=== PATIENT | female | born 1955 | race Caucasian/White ===

== ENCOUNTER 2023-04-16 11:15 | Emergency (ER) | payer MEDICARE, SELFPAY ==
[2023-04-16 11:16] VITALS: BP 135/80; PULSE 84; RESP 18; TEMP 36.7; O2SAT 94; BMI 29.9
--- NOTE | 2023-04-16 11:47 | ED_ITS ---
HPI - Syncope 2 General: Chief Complaint: Syncope Stated Complaint: SYNCOPE Time Seen by Provider: 04/16/23 11:26 Source: patient and family Mode of arrival: EMS Limitations: no limitations History of Present Illness: This patient was transported to our emergency department via EMS. She was apparently in the smoke shop along with her when she felt lightheaded like that she was going to lose consciousness and possibly pass out. Her was standing right next to her and she states that she attempted to step backwards and then continue to go down to the floor and going backwards to the floor on her back. partially broke her fall states she did not strike her head, lose consciousness, suffer seizure, suffer a loss of bowel or bladder control. She denies any concomitant chest pain or focal weakness with this episode. She denied headache etc. She has had several episodes similar to this and has been seen both in outpatient clinic as well as the emergency department at [facility]. They received the majority of their care through [facility]. She takes iron as well as thyroid replacement as well as her inhalers for COPD. She has been recently treated for pneumonia. She also has an MRI scheduled because of a kidney mass discovered on a CT scan recently. She denies any blood in her stools, black tarry stools, recent illness such as nausea vomiting or diarrhea. She continues to have cough but no fever. She smokes tobacco but denies alcohol. She takes meloxicam daily basis for arthritis. As noted she had a couple of or more of similar episodes 1 with defecation and 1 with rising from the couch recently. complaint: almost passed out and collapsed Prodromal symptoms: lightheaded Injuries sustained associated with event: none Associated symptoms: Reports no associated symptoms; Deny abdominal pain, chest pain, fever(s), headache(s) or nausea Review of Systems 2 Const: Denies: fever(s) or chills Eyes: Denies: change in vision ENMT: Denies: throat pain or odynophagia Card: Denies: chest pain, palpitations, irregular heart rhythm or edema Resp: Reports: productive cough; Denies: wheezing or stridor GI: Denies: abdominal pain, nausea, vomiting, hematemesis, hematochezia or melena : Denies: flank pain, difficulty voiding, dysuria or urinary frequency Musc: Denies: neck pain, back pain, extremity pain or extremity swelling Skin/Breast: Denies: rash Neuro: Denies: headache(s), numbness in extremities or weakness in extremities Psych: Denies: anxiety or depression Physical Exam 2 Narrative: EXAM NARRATIVE: She is alert appears comfortable in no acute distress. She makes good eye contact. Speech is goal-directed and fluent. Const: COMMON NORMALS: no acute distress, average body habitus, patient oriented x3 and alert GENERAL APPEARANCE: cooperative HENMT: COMMON NORMALS: normocephalic, atraumatic, Normal nasal mucous membranes and turbinates present, moist oral mucous membranes and oropharynx normal HEAD & SCALP: normocephalic and atraumatic FACE & SINUS: normal facial exam and face symmetric NOSE: Normal nasal mucous membranes and turbinates present Eye: COMMON NORMALS: Equal, round and reactive pupils present, EOMs intact bilaterally and conjunctivae normal CONJUNCTIVA: Yes conjunctivae normal P UPIL: Yes Equal, round and reactive pupils present Neck/C-Spine: COMMON NORMALS: full ROM CERVICAL SPINE: Yes cervical ROM normal, No Cervical spine tenderness, No step off deformity, No Paracervical muscle tenderness, No Paracervical spasm and No Trapezius muscle tenderness O THER: Normal range of motion without any discomfort or pain, midline tenderness, step- off. Lymph: LYMPHATIC: no lymphadenopathy noted Chest: COMMONS NORMALS: normal inspection of the chest and normal palpation of entire chest wall Resp: COMMON NORMALS: normal respiratory effort EFFORT & INSPECTION: Yes able to speak in complete sentences AUSCULTATION: crackles and wheezes Cardio: COMMON NORMALS: regular rate, regular rhythm, No murmurs present (Cardio) and Peripheral pulses 2+ throughout RATE: regular rate RHYTHM: r egular rhythm PERIPHERAL PULSES: Peripheral pulses 2+ throughout GI: COMMON NORMALS: Normal to inspection, nondistended, normoactive bowel sounds present, Soft to palpation, non-tender and No hepatosplenomegaly present PALPATION: Yes Soft to palpation and Yes No hepatosplenomegaly present : COMMON NORMALS: Yes no CVA tenderness BLADDER/KIDNEY EXAM: Yes no CVA tenderness Back/Pelvis: COMMON NORMALS: no CVA tenderness, thoracic and lumbar spine normal to inspection, no thoracic nor lumbar tenderness and straight leg raise negative bilaterally Extremity: COMMON NORMALS: normal to inspection, full ROM, capillary refill normal, no calf tenderness and no pedal edema Neuro: COMMON NORMALS: patient oriented x3, moves all extremities, no focal motor deficits and no sensory deficits noted SENSORIUM/ORIENTATION: Yes alert CRANIAL NERVES: Yes CN normal except as noted Psych: COMMON NORMALS: mental status grossly normal Skin: COMMON NORMALS: no rashes or lesions noted, no wounds, turgor normal and no petechiae GENERAL SKIN EXAM: no rashes or lesions noted and turgor normal Course 2 Reevaluation(s): Reevaluation #1: Patient was noted to have varying pulse oximetry is in the mid to high 80s at times at rest. Additional information was obtained from the patient apparently she is on 3 L of oxygen continuously at home. Her portable canister was inoperable so therefore she did not present to the emergency department wearing her oxygen. This provides mitigation against absolute need for hospitalization at this time. I discussed her past treatment apparently she was given azithromycin as well as Levaquin earlier in the course of her treatment approximately 1 month ago. She has normal vital signs at this time and corrects easily to 100% with 2 L of oxygen via nasal cannula. She is receiving her IV fluids at this time. Will go ahead and give her a loading dose of Rocephin and plan on continuing doxycycline for outpatient therapy. She is comfortable with this plan of care. Time: 13:40 Vital Signs: Vital signs: Vital Signs Temperature 98.1 F 04/16/23 11:16 Pulse Rate 82 04/16/23 13:24 Respiratory Rate 20 H 04/16/23 13:19 Blood Pressure 135/80 04/16/23 11:16 Pulse Oximetry 95 04/16/23 13:19 Oxygen Delivery Me thod Room Air 04/16/23 13:19 MDM - Syncope Medical Decision Making This patient presented to our emergency department with a near/syncopal episode. She has had several of these in the past several weeks according to both patient and spouse. There were not associated with focal weakness, seizure, trauma etc. She has recently been ill with pneumonia and had antibiotics approximately 1 month prior to arrival to this emergency department. She apparently has oxygen requiring COPD and normally wears 2 to 3 L of oxygen via nasal cannula but did not have it with her today as apparently her portable canister supply method is nonfunctional. She does have an oxygen concentrator at home that she uses at that locale. Her most recent history is also that she continues to have purulent sputum and a productive cough does not feel that she is back at her usual baseline with respect to her pulmonary status. She is a long standing smoker and still smokes regularly. She states her oral intake is been less over the past couple weeks because she really does not have much in the way of taste or thirst. She denies any nausea vomiting diarrhea etc. No chest pain etc. No known history of congestive heart failure or coronary disease. Clinical examination revealed her to be alert. She had normal vital signs throughout her emergency department stay. She did require supplemental oxygen to maintain O2 saturation in the high 90s to 100% on 2 L. She received the benefit of evaluation to include chemistries serial EKGs serial troponin, another evaluation to ensure no evidence of ongoing ACS, significant volume depletion, arrhythmia etc. There was no clinical evidence or historical evidence suggest trauma so no imaging was obtained of her axial spine or her head. She was also not on any antiplatelet or anticoagulant medication. Given her radiographic evidence of persistent pneumonia, her clinical picture she was given antibiotics in the emergency department and will be continued on a broad-spectrum antibiotic with improved coverage over her prior antibiotic exposure. She did not have any sustained ischemic changes or arrhythmias on EKG but did have a shortened KS interval which could put put her at potential risk for supraventricular arrhythmia such as atrial fibs atrial flutter. She did not display anemia or other findings that could be contributing to her syncopal episodes she is had no clinical history to suggest same but I think it is warranted that she be referred for ambulatory monitoring to ensure that there is no sustained arrhythmias. I think her recent illness may be contributing factor to her syncope. No evidence at this time of other ongoing emergency medical condition. Pneumonia severity score and her clinical appearance did not mandate inpatient treatment and the patient was very comfortable with going home with outpatient follow-up. Lab Data I reviewed the patient's lab results. 04/16/23 12:08 04/16/23 12:08 Radiology Impressions Chest X-Ray 04/16/23 11:53 IMPRESSION: 1. Left lower lung consolidation consistent with pneumonia. 2. Indistinct central pulmonary interstitial markings bilaterally. This finding may be related to infection or interstitial edema. ADDENDUM: 04/16/23 8093 THIS REPORT CONTAINS FINDINGS THAT MAY BE CRITICAL TO PATIENT CARE. The findings were verbally communicated via telephone conference with ROSEMARY VELASQUEZ at 12:52 PM SECURITY FLEX OFFICER on 04/16/2023. The findings were acknowledged and understood. The referring physician reports that symptoms have been ongoing for approximately 1 month. Given this information, recommendation for radiographic follow-up to resolution was discussed. Follow-up chest radiograph should be performed in approximately 6 weeks. Laboratory Results WBC 12.91 10^3/uL (3.29-11.43) H 04/16/23 12:08 RBC 4.50 10^6/uL (3.85-5.65) 04/16/23 12:08 Hgb 11.20 g/dL (11.27-16.99) L 04/16/23 12:08 Hct 37.3 % (36-47) 04/16/23 12:08 MCV 82.9 fl (85-98) L 04/16/23 12:08 MCH 24.9 pg (27-33) L 04/16/23 12:08 MCHC 30.0 g/dL (30-55) 04/16/23 12:08 RDW 17.2 % (12.1-15.1) H 04/16/23 12:08 Plt Count 299 10^3/cmm (157-399) 04/16/23 12:08 MPV 8.8 fL (7.4-10.4) 04/16/23 12:08 Neut % (Auto) 83.7 % 04/16/23 12:08 Lymph % (Auto) 7.0 % 04/16/23 12:08 [place] % (Auto) 8.1 % 04/16/23 12:08 Eos % (Auto) 0.5 % 04/16/23 12:08 Baso % (Auto) 0.3 % 04/16/23 12:08 Neut # (Auto) 10.80 10^3/uL (1.8-7.7) H 04/16/23 12:08 Lymph # (Auto) 0.9 10^3/uL (0.8-4.8) 04/16/23 12:08 [place] # (Auto) 1.1 10^3/uL (0.2-0.9) H 04/16/23 12:08 Eos # (Auto) 0.1 10^3/uL (0.0-0.8) 04/16/23 12:08 Baso # (Auto) 0.0 10^3/uL (0.0-0.1) 04/16/23 12:08 Nucleated RBC % (auto) 0 % 04/16/23 12:08 Nucleated RBCs # 0.0 /100WBC 04/16/23 12:08 Sodium 127 mmol/L (136-145) L 04/16/23 12:08 Potassium 3.6 mmol/L (3.5-5.1) 04/16/23 12:08 Chloride 91 mmol/L (98-107) L 04/16/23 12:08 Carbon Dioxide 23 mmol/L (22-29) 04/16/23 12:08 Anion Gap 16.6 (5-19) 04/16/23 12:08 BUN 9 mg/dL (8-23) 04/16/23 12:08 Creatinine 0.8 mg/dL (0.5-0.9) 04/16/23 12:08 GFR Calculation 71.3 mL/min (90-130) L 04/16/23 12:08 Glucose 110 mg/dL (65-115) 04/16/23 12:08 Calculated Osmolality 263 mOsm/kg (285-295) L 04/16/23 12:08 Calcium 8.9 mg/dL (8.5-10.5) 04/16/23 12:08 Total Bilirubin 0.8 mg/dL (0.15-1.2) 04/16/23 12:08 AST 32 U/L (0-32) 04/16/23 12:08 ALT 21 U/L (0-33) 04/16/23 12:08 Alkaline Phosphatase 231 U/L (35-105) H 04/16/23 12:08 Troponin T Baseline 10 ng/L (0-10) 04/16/23 12:08 Total Protein 7.0 g/dL (6.6-8.7) 04/16/23 12:08 Albumin 2.0 g/dL (3.5-5.2) L 04/16/23 12:08 Globulin 5.0 g/dL (1.3-4.6) H 04/16/23 12:08 All radiology interpretation(s) finalized by discharge EKG Data EKG 1: I personally reviewed and interpreted this EKG as follows: Interpretation: Contemporaneous review of EKG reveals a ventricular rate of 87 bpm. Normal QRS duration, corrected QT interval. Does have a shortened KS interval of 106 ms. Does not have any evidence of delta waves at this time. Does have an occasional unifocal extra systole. No acute ST-T wave changes noted. Normal axis. No prior tracings available within the system for comparison EKG 2: I personally reviewed and interpreted this EKG as follows: Interpretation: Repeat electrocardiogram reveals a ventricular rate of 79 bpm. Still has a shortened KS interval 113 ms. Normal QRS duration, normal corrected QT interval. Slight leftward axis. No acute ST-T wave changes and no change from prior tracing this visit. Discharge Plan Discharge Patient Disposition: Home Clinical Impression: Left lower lobe pneumonia Qualifiers: Pneumonia type: due to unspecified organism Qualified Code(s): J18.9 - Pneumonia, unspecified organism Syncope Qualifiers: Syncope type: unspecified Qualified Code(s): R55 - Syncope and collapse Condition: Stable Prescriptions: New doxycycline hyclate 100 mg capsule 100 mg PO BID 7 Days Qty: 14 0RF No Action atorvastatin 40 mg tablet 40 mg PO QPM meloxicam 15 mg tablet 15 mg PO DAILY potassium chloride 10 mEq tablet extended release 10 meq PO DAILY Iron (ferrous sulfate) 325 mg (65 mg iron) Tablet 325 mg PO DAILY albuterol sulfate 90 mcg/actuation HFA aerosol inhaler 2 puff INHALATION Q4H PRN (Reason: Shortness Of Breath Or Wheezing) fluoxetine 20 mg capsule 20 mg PO DAILY levothyroxine 112 mcg tablet 112 mcg PO DAILY quetiapine 50 mg tablet 50 mg PO QPM Symbicort 160-4.5 mcg/actuation HFA aerosol inhaler 2 puff INHALATION BID Discharge Orders: Discharge ED (Routine); Ordered 04/16/23 Ordered By: Rosemary Velasquez Discharge Diet: Usual diet Discharge Activity: Increase activity as tolerated and Oxygen as instructed Patient Instructions: Opioid Safety, Pain Management Activity Restrictions/Additional Instructions: As we discussed you will need to continue antibiotics that we have prescribed. You should also continue to use your home oxygen. Also should drink at least 2 quarts of water daily in addition to your other fluids. Do not smoke cigarettes. We have placed an order for a monitor that can be arranged through your bleacher pulp in [place] to determine if you are having a heart rhythm issues that are contributing to your feeling weak. You are welcome to return to this emergency department anytime should you have increasing shortness of breath, feeling weak or passing out chest pains etc. Otherwise follow-up with your regular doctor in 7-10 days. Coding Level of Care Code ED Riverboat Master for Preeti Lynn
--- NOTE | 2023-04-16 11:53 | XRR_ITS ---
PROCEDURE INFORMATION: Exam: XR Chest Exam date and time: 04/16/2023 1:12 PM Age: 67 years old Clinical indication: Cough TECHNIQUE: Imaging protocol: Radiologic exam of the chest. Views: 1 view. COMPARISON: No relevant prior studies available. FINDINGS: Lungs: There is ill-defined consolidation in the lower left lung partially obscuring the left heart border probably involving the lingula and left lower lobe. There is no focal consolidation on the right. Central pulmonary interstitial markings are indistinct bilaterally. Pleural spaces: There is no pleural effusion or pneumothorax. Heart/Mediastinum: There is mild enlargement of the cardiac silhouette. Bones/joints: Bones are unremarkable. XR/XR chest 1V portable [id number] IMPRESSION: 1. Left lower lung consolidation consistent with pneumonia. 2. Indistinct central pulmonary interstitial markings bilaterally. This finding may be related to infection or interstitial edema.
[2023-04-16 12:13] LABS: Basophils % 0.3 %; Eosinophils # 0.1 10^3/uL (0.0-0.8); Eosinophils % 0.5 %; Hematocrit 37.3 % (36-47); Lymphocytes # 0.9 10^3/uL (0.8-4.8); Mean Corpuscular Hemoglobin 24.9 pg (27-33); Mean Corpuscular Volume 82.9 fl (85-98); Mean Platelet Volume 8.8 fL (7.4-10.4); Monocytes # 1.1 10^3/uL (0.2-0.9); Monocytes % 8.1 %; Neutrophils % 83.7 %; Nucleated Red Blood Cells % 0 %; Platelet Count 299 10^3/cmm (157-399); Red Cell Distribution Width 17.2 % (12.1-15.1); White Blood Count 12.91 10^3/uL (3.29-11.43)
--- NOTE | 2023-04-16 12:14 | ECG_ITS ---
[facility] Test Date: 2023-04-16 Pat Name: Li Fofana Department: Room: Gender: Female Specialist Employee Labor Relations: : 1955 Requested By: Goldy Theodore Order Number: [id number] Burt MD: Mariel Cardenas M.D. Measurements Intervals [place] Rate: 87 P: 78 GA: 106 QRS: 12 QRSD: 82 T: 47 QT: 347 QTc: 419 Interpretive Statements SINUS RHYTHM WITH SHORT GA INTERVAL WITH OCCASIONAL VENTRICULAR PREMATURE COMPLEXES No previous ECG available for comparison Electronically Signed On 04-17-2023 21:30:00 PROCESSING SUPERVISOR by Mariel Cardenas M.D. [id number]
[2023-04-16 12:35] LABS: Alanine Aminotransferase 21 U/L (0-33); Alkaline Phosphatase 231 U/L (35-105); Blood Urea Nitrogen 9 mg/dL (8-23); Calcium 8.9 mg/dL (8.5-10.5); Carbon Dioxide 23 mmol/L (22-29); Chloride 91 mmol/L (98-107); Glomerular Filtration Rate 71.3 mL/min (90-130); Glucose 110 mg/dL (65-115); Osmolality Calculated 263 mOsm/kg (285-295); Sodium 127 mmol/L (136-145); Total Bilirubin 0.8 mg/dL (0.15-1.2)
[2023-04-16 12:37] LABS: Anion Gap 16.6 (5-19); Aspartate Amino Transferase 32 U/L (0-32); Potassium 3.6 mmol/L (3.5-5.1)
[2023-04-16 12:40] LABS: Troponin(5th) Baseline 10 ng/L (0-10)
[2023-04-16] MEDS: sodium chloride 0.9% 1,000 ML 999 ML IV (12:57)
[2023-04-16] MEDS: ipratropium-albuterol 3 mL Neb INHALATION (13:18)
[2023-04-16 13:19] VITALS: PULSE 81; RESP 20; O2SAT 95
[2023-04-16 13:24] VITALS: PULSE 82
--- NOTE | 2023-04-16 13:49 | ECG_ITS ---
[facility] Test Date: 2023-04-16 Pat Name: Li Fofana Department: Room: Gender: Female Service Advisor: : 1955 Requested By: Goldy Theodore Order Number: [id number] Burt MD: Mariel Cardenas M.D. Measurements Intervals [place] Rate: 79 P: 74 SC: 113 QRS: 52 QRSD: 97 T: 58 QT: 315 QTc: 362 Interpretive Statements SINUS RHYTHM WITH SHORT SC INTERVAL NONSPECIFIC T-WAVE ABNORMALITY Compared to ECG 04/16/2023 12:14:53 T-wave abnormality now present Ventricular premature complex(es) no longer present Electronically Signed On 04-17-2023 21:35:40 PERSONNEL RESEARCH PSYCHOLOGIST by Mariel Cardenas M.D. [id number]
[2023-04-16] MEDS: cefTRIAXone 2,000 MG in sodium chloride 0.9% (plus) 50 ML 100 MG IV (14:12)
[2023-04-16 15:23] VITALS: BP 110/41; PULSE 76; RESP 16; O2SAT 97
--- NOTE | 2023-04-18 11:27 | DCPLANNER ---
I sent referral to [facility] cardiology on 04/18/23 at 0926am. I spoke with this clinic and was told patient has not been seen since 2019 and will need a new patient visit. I sent over all paperwork this morning to fax number : [phone] phone number of [phone]. clinic to contact patient
== END 2023-04-16 15:26 | disposition home or self-care (01) ==
PROVIDERS: Emergency Provider Emergency Medicine
DX: J18.9 Pneumonia, unspecified organism (principal); R55 Syncope and collapse
CPT/HCPCS: 71045; 80053; 84484; 85025; 93005; 94640; 96374; 99285; J0696; J7030

== ENCOUNTER 2023-08-25 19:07 | Inpatient (IN) | payer MEDICARE, SELFPAY ==
[2023-08-25] VITALS (42 sets, daily range): BP systolic 119–150; BP diastolic 54–72; PULSE 63–113; RESP 6–31; TEMP 36.2–36.7; O2SAT 90–100; BMI 26.1
--- NOTE | 2023-08-25 19:46 | P.HP_ITS ---
Providers/Chief Complaint Admitting Physician: Irvin Zapien MD Chief Complaint: Upper GI Bleed History of Present Illness Li Fofana is a 67 year old female with a past medical history significant for hypertension, hypothyroidism, hyperlipidemia, severe recurrent major depression, fibromyalgia, gout, arthritis, asthma, coronary artery disease, COPD, allergic rhinitis, systolic heart failure, chronic hypoxic respiratory failure, and left- sided renal mass suspicious for RCC who transfers from [facility] for further evaluation of GI bleeding. Patient reports she was in her usual state of health until about a month ago when she became diffusely weak at home. States she continued to fall repeatedly. She presented to the outside hospital yesterday for further evaluation of her generalized weakness. She was found to have microcytic anemia. Hemoglobin on 08/23 was 6.5. She was transfused 1 packed red blood cell and started on IV PPI. Hemoglobin after transfusion on AM of 08/24 was 6.8. She reports she does not know her baseline hemoglobin but has never been told she had a problem from her primary care physician who routinely checks her labs. She endorses associated symptoms of melena with black and tarry stools for the past 2 weeks. Endorses associated occasional right upper quadrant abdominal pains that occur intermittently. Denies alleviating or aggravating factors. She denies prior known history of GI bleeding. She denies prior EGD. She reports a colonoscopy around 2014 which was completely clean without polyps. She does take aspirin for history of coronary artery disease. She states that she underwent a left heart catheter about a month ago as part of her preop evaluation and she reports no significant change from her prior heart cath. She takes a baby aspirin daily. She is also on meloxicam which she has been on for many years for osteoarthritis. She denies taking other [id number] NSAIDs. CT abdomen and pelvis on 08/23 showed very large heterogeneous enhancing left renal mass extending into the left renal vein/tumor thrombus. Neovascularity surrounding the left kidney. No significant lymphadenopathy. The left ureter not visible. Involvement of the left ureter not excluded. Findings consistent with renal cell carcinoma. The right kidney is normal in appearance. No lytic or bony lesions. Probable degenerating uterine leiomyomas. The endometrial st ripe appears thickened's versus cystic structures within the uterus. Consider ultrasound of the pelvis for further evaluation. She has a known history of left renal mass. She is following with Dr Lázaro Lauren at [facility]. She has follow up with him on 09/09/23 to discuss surgical planning. She has reportedly already recieved pulmonary clearance from Dr Hatfield at [place], [place], as well as cardiac clearance from Dr Titus in [place] as well. Review of Systems Narrative: A complete review of systems was obtained and is negative except as stated in HPI. Medications/Allergies Home Medications Medication Instructions Recorded Confirmed Last Taken Type albuterol sulfate 90 mcg/actuation 2 puff inhalation Q4H PRN 04/16/23 08/25/23 Unknown History aerosol inhaler Shortness Of Breath Or Wheezing atorvastatin 40 mg tablet 40 mg PO QPM 04/16/23 08/25/23 08/24/23 History budesonide-formoterol HFA 160 2 puff inhalation BID 04/16/23 08/25/23 08/25/23 History mcg-4.5 mcg/actuation aerosol inhaler (Symbicort) ferrous sulfate 325 mg (65 mg 325 mg PO DAILY 04/16/23 08/25/23 04/16/23 History iron) tablet (Iron (ferrous sulfate)) fluoxetine 20 mg capsule 20 mg PO DAILY 04/16/23 08/25/23 Unknown History levothyroxine 112 mcg tablet 112 mcg PO DAILY 04/16/23 08/25/23 08/25/23 History meloxicam 15 mg tablet 15 mg PO DAILY 04/16/23 08/25/23 04/16/23 History potassium chloride 10 mEq 10 meq PO DAILY 04/16/23 08/25/23 08/25/23 History tablet,extended release quetiapine 50 mg tablet 50 mg PO QPM 04/16/23 08/25/23 08/24/23 History Allergies Allergy/AdvReac Type Severity Reaction Status Date / Time codeine Allergy Unknown Verified 04/16/23 12:06 iodine Allergy ADR-Itching Verified 08/25/23 19:31 PFSH Acute PFSH: Medical History Osteoarthritis Gout Fibromyalgia Allergic rhinitis Psoriasis Pulmonary nodule Chronic hypoxic respiratory failure Systolic heart failure Asthma COPD (chronic obstructive pulmonary disease) Depression Hyperlipidemia Left renal mass Hypothyroidism Hypertension Surgical History History of colonoscopy History of tubal ligation History of cardiac cath History of cholecystectomy Family History Father Multiple myeloma Myocardial infarction Mother Alzheimer's dementia Diabetes mellitus, type 2 Social History Smoking and tobacco/nicotine status: current every day tobacco/nicotine user Alcohol intake: never Substance/Drug Use: never Vitals/I&O/Wt Weight last 48 hrs Weight 73.482 kg Physical Exam Narrative: General: Patient is awake and alert. Head: Normocephalic. Atraumatic. EOM intact. Pale mucous membranes. Neck: No JVD. Cardiovascular: RRR. No gallops. No murmurs. No peripheral edema. Lungs: Clear to auscultation, no use of accessory muscles, no crackles or wheezes. On nasal cannula support. Skin: No jaundice. No rashes. Abdomen: Normal bowel sounds, abdomen soft and nontender. Extremities: No cyanosis or clubbing. Musculoskeletal: No swollen or erythematous joints. Neurological: Moves all 4 extremities. No myoclonus. A&P Assessment and plan (1) Acute GI bleeding: Acute GI bleed with melena BUN at outside hospital not markedly elevated Initially hemoglobin 6.5 status post 1 unit packed red blood cell with posttransfusion of 6.8 this morning Recheck labs now Hemoglobin goal of 7-8 given history of coronary disease Trend hemoglobin Telemetry monitoring Start continuous PPI drip Start Carafate Start gentle IV fluids, she does not know her ejection fraction, however is dry on exam General surgery, Dr Diaz already consulted prior to transfer N.p.o. after midnight for endoscopy tomorrow (2) Microcytic anemia: Suspected secondary to acute blood loss anemia from GI bleed She does not know her baseline hemoglobin Check iron panel, will be completely accurate given she is received 1 packed red blood cell at outside hospital Transfuse as needed (3) Hypertension: Blood pressure currently normal Hold any antihypertensives in the setting of GI bleed Monitor vitals closely (4) Left renal mass: Continue outpatient follow-up (5) Hypothyroidism: Continue home Synthroid after home list is updated (6) Depression: Continue home meds after home list is updated Plan DVT prophylaxis: SCD. CODE STATUS: DNR Attestations Medical Necessity Statement*: 67-year-old female transferred for acute blood loss anemia with suspected GI bleed requiring transfusion with expected hospitalization to cross 2 midnights for additional transfusions, IV fluid resuscitation, general surgery evaluation, endoscopy, and supportive care. Coding Level of Care Code Acute Code for Chg Fwd Diagnoses Acute GI bleeding K92.2 Microcytic anemia D50.9 Hypertension I10 Left renal mass N28.89 Hypothyroidism E03.9 Depression F32.A
[2023-08-25] MEDS: pantoprazole 40 MG in sodium chloride 0.9% (plus) 100 ML 20 MG IV (20:32)
[2023-08-25] MEDS: sucralfate 1 gm Tablet PO (20:33)
[2023-08-25 20:35] LABS: Basophils % 0.1 %; Eosinophils % 0.1 %; Hematocrit 23.6 % (36-47); Lymphocytes # 1.3 10^3/uL (0.8-4.8); Mean Corpuscular HGB Conc 30.5 g/dL (30-55); Mean Corpuscular Hemoglobin 25.5 pg (27-33); Mean Corpuscular Volume 83.7 fl (85-98); Mean Platelet Volume 8.6 fL (7.4-10.4); Monocytes # 1.3 10^3/uL (0.2-0.9); Nucleated Red Blood Cells % 0 %; Platelet Count 402 10^3/cmm (157-399); Red Blood Count 2.82 10^6/uL (3.85-5.65); Red Cell Distribution Width 15.7 % (12.1-15.1); White Blood Count 15.54 10^3/uL (3.29-11.43)
[2023-08-25 20:56] LABS: Iron 41 ug/dL (37-145)
[2023-08-25 20:57] LABS: Alanine Aminotransferase 6 U/L (0-33); Albumin Level 2.1 g/dL (3.5-5.2); Alkaline Phosphatase 138 U/L (35-105); Aspartate Amino Transferase 16 U/L (0-32); Blood Urea Nitrogen 17 mg/dL (8-23); Calcium 8.8 mg/dL (8.5-10.5); Carbon Dioxide 21 mmol/L (22-29); Chloride 104 mmol/L (98-107); Creatinine Clr Calc Pharmacy 50.2063; Globulin 4.6 g/dL (1.3-4.6); Glomerular Filtration Rate 49.4 mL/min (90-130); Glucose 147 mg/dL (65-115); Iron 41 ug/dL (37-145); Magnesium 1.8 mg/dL (1.7-2.3); Osmolality Calculated 284 mOsm/kg (285-295); Percent Saturation 28.6 % (20-50); Phosphorus 2.6 mg/dL (2.5-4.5); Sodium 135 mmol/L (136-145); Total Bilirubin 0.9 mg/dL (0.15-1.2); Total Iron Binding Capacity 143 mcg/dl; Total Protein 6.7 g/dL (6.6-8.7); Unsaturated Iron Binding 102 ug/dL (112-347)
[2023-08-25 20:58] LABS: D Dimer 4.02 ug/mLFEU (0-0.59)
[2023-08-25 21:10] LABS: Ferritin 1708 ng/mL (15-150)
[2023-08-25 22:12] LABS: Add Urine Culture? Yes; Add Urine Microscopic? YES; Amorphous Sediment Urine 1+ /hpf; Bacteria Urine 2+ /hpf; Bilirubin Urine Neg (Negative); Blood Urine 2+ (Negative); Coarse Granular Casts Urine 0-4 /lpf; Glucose Urine UA Norm (Normal); Ketones Urine Negative (Negative); Leukocyte Esterase Urine 1+ (Negative); Mucus Urine 2+ /hpf; Nitrate Urine Positive (Negative); Protein Urine Neg (Negative); Specific Gravity, Urine 1.015 (1.005-1.030); Squamous Epithelial Cell Urine 0-4 /hpf (0-5); Urine Appearance Hazy (CLEAR); Urine Color Dark Yellow (Yellow); Urobilinogen Urine Neg (Negative); pH Urine 5 (5-7)
[2023-08-26] VITALS (55 sets, daily range): BP systolic 120–152; BP diastolic 58–98; PULSE 60–85; RESP 12–27; TEMP 36.4–37.3; O2SAT 84–100; BMI 26.1
[2023-08-26] MEDS: pantoprazole 40 MG in sodium chloride 0.9% (plus) 100 ML 20 MG IV ×3 (01:01→10:45)
--- NOTE | 2023-08-26 04:01 | PC.NURSE ---
0: Patient was stable, alert and oriented when brought in by EMS. All belongings were put at bedside.
[2023-08-26] MEDS: cefTRIAXone 1,000 MG in sodium chloride 0.9% (plus) 50 ML 100 MG IV (04:09)
[2023-08-26 04:32] LABS: Basophils % 0.3 %; Eosinophils % 0.1 %; Hematocrit 26.9 % (36-47); Lymphocytes # 1.6 10^3/uL (0.8-4.8); Lymphocytes % 11.5 %; Mean Corpuscular HGB Conc 31.2 g/dL (30-55); Mean Corpuscular Hemoglobin 25.5 pg (27-33); Mean Corpuscular Volume 81.8 fl (85-98); Mean Platelet Volume 8.3 fL (7.4-10.4); Monocytes # 1.2 10^3/uL (0.2-0.9); Monocytes % 8.4 %; Neutrophils # 11.09 10^3/uL (1.8-7.7); Neutrophils % 78.9 %; Nucleated Red Blood Cells % 0 %; Platelet Count 326 10^3/cmm (157-399); Red Blood Count 3.29 10^6/uL (3.85-5.65); Red Cell Distribution Width 15.9 % (12.1-15.1); White Blood Count 14.06 10^3/uL (3.29-11.43)
[2023-08-26 05:03] LABS: Anion Gap 11.1 (5-19); Blood Urea Nitrogen 18 mg/dL (8-23); Calcium 8.8 mg/dL (8.5-10.5); Carbon Dioxide 21 mmol/L (22-29); Chloride 103 mmol/L (98-107); Creatinine Clr Calc Pharmacy 50.2063; Glomerular Filtration Rate 49.4 mL/min (90-130); Glucose 121 mg/dL (65-115); Osmolality Calculated 275 mOsm/kg (285-295); Potassium 4.1 mmol/L (3.5-5.1); Sodium 131 mmol/L (136-145)
[2023-08-26] MEDS: budesonide 0.5 mg/2 mL Neb INHALATION ×2 (08:32→19:57)
[2023-08-26] MEDS: sodium chloride 0.9% 1,000 ML 70 ML IV (08:59)
[2023-08-26] MEDS: pneumococcal (23 valent) SDV 0.5 mL IM (10:04)
--- NOTE | 2023-08-26 10:58 | P.PN_ITS ---
Subjective 2 Subjective: No acute overnight events noted. Seen at bedside she is comfortable lying in bed no new complaints noted. Counseled about the plan of care. Medications: Reviewed: Yes Vitals/I&O/Wt Last Vital Signs Temp 97.8 F 08/26/23 04:00 Pulse 76 08/26/23 09:45 Resp 25 H 08/26/23 09:45 BP 127/83 08/26/23 09:45 Pulse Ox 87 L 08/26/23 09:45 O2 Del Method Nasal Cannula 08/26/23 08:32 O2 Flow Rate 4 08/26/23 08:32 08/25/23 08/26/23 08/26/23 22:59 06:59 14:59 Intake Total 0 / 0 439.667 / 439.667 144 / 144 Output Total 200 / 200 Balance -200 / -200 439.667 / 239.667 144 / 144 Weight last 48 hrs Weight 73.482 kg Weight 73.482 kg Weight 73.482 kg Physical Exam 2 Narrative: General: Patient is awake and alert. Cardiovascular: RRR. No gallops. No murmurs. No peripheral edema. Lungs: Clear to auscultation, no use of accessory muscles, no crackles or wheezes. On nasal cannula support at 3 L . Abdomen: Normal bowel sounds, abdomen soft and nontender. Extremities: No cyanosis or clubbing. Neurological: Moves all 4 extremities. Data 08/26/23 13:42 08/26/23 04:08 A&P Assessment and plan (1) Acute GI bleeding: (2) Microcytic anemia: (3) Depression: (4) Left renal mass: (5) Hypothyroidism: Plan Li Fofana is a 67 year old female with a past medical history significant for hypertension, hypothyroidism, hyperlipidemia, severe recurrent major depression, fibromyalgia, gout, arthritis, asthma, coronary artery disease, COPD, allergic rhinitis, systolic heart failure, chronic hypoxic respiratory failure, and left- sided renal mass suspicious for RCC who transfers from [facility] for further evaluation of GI bleeding. 1. GI bleed she had hemoglobin of 6.5 and 6.8 post 1 unit PRBC. She also reports history of black tarry stools for 2 weeks. Hemoglobin stable this morning at 8.4 but Plan for upper GI endoscopy this afternoon, Dr. Diaz aware. Will monitor hemoglobin with repeat CBC at 11 AM. Continue PPI drip and p.o. Carafate. On IV fluids normal saline at 70 cc/h 2. UTI Continue with IV fluids and ceftriaxone 1 g daily Follow-up urine cultures N.p.o. for now for upper GI endoscopy. DVT prophylaxis with SCD GI prophylaxis, already on PPI drip She is DNR. Attestations 2 Medical Necessity Statement*: She needs continued hospitalization less than 2 midnights for monitoring for GI bleed and upper GI endoscopy. Time Spent in Patient Care: 20 minutes Coding Level of Care Code Acute Code for Chg Fwd Diagnoses Acute GI bleeding K92.2 Microcytic anemia D50.9 Depression F32.A Left renal mass N28.89 Hypothyroidism E03.9 Time Spent (min) 20
--- NOTE | 2023-08-26 13:19 | P.ANESASSM_ITS ---
Pre-Anesthetic Assessment Height/Weight: Height 1.68 m Weight 73.482 kg Temp Pulse Resp BP Pulse Ox O2 Del Method O2 Flow Rate 97.8 F 77 20 H 141/64 100 Nasal Cannula 4 08/26/23 04:00 08/26/23 12:59 08/26/23 12:59 08/26/23 12:59 08/26/23 12:59 08/26/23 08:32 08/26/23 08:32 Operation Date: 08/26/23 14:00 Proposed Procedures p EGD(Not Applicable) - Atilio Diaz DO Familial anesthetic complications: None Was Beta Christos taken within 24 hours: N/A Was Clonidine taken within 24 hours: N/A Last intake: > 8hrs Social Tobacco and No alcohol Exam alert, oriented x 3, clear to auscultation bilaterally and regular rate & rhythm Pulmonary Asthma and Chronic Obstructive Pulmonary Disease (4 L NC continuously) CV/HEM Hypertension renal celll carcinoma Metabolic Hyperlipidemia and Thyroid Disease Anesthetic Plan ASA status: 4 Anesthesia: MAC Risk of > 500 ml blood loss (7ml/kg in children): No Medications/Allergies Home Medications Medication Instructions Recorded Confirmed Last Taken Type albuterol sulfate 90 mcg/actuation 2 puff inhalation Q4H PRN 04/16/23 08/25/23 Unknown History aerosol inhaler Shortness Of Breath Or Wheezing atorvastatin 40 mg tablet 40 mg PO QPM 04/16/23 08/25/23 08/24/23 History budesonide-formoterol HFA 160 2 puff inhalation BID 04/16/23 08/25/23 08/25/23 History mcg-4.5 mcg/actuation aerosol inhaler (Symbicort) ferrous sulfate 325 mg (65 mg 325 mg PO DAILY 04/16/23 08/25/23 04/16/23 History iron) tablet (Iron (ferrous sulfate)) fluoxetine 20 mg capsule 20 mg PO DAILY 04/16/23 08/25/23 Unknown History levothyroxine 112 mcg tablet 112 mcg PO DAILY 04/16/23 08/25/23 08/25/23 History meloxicam 15 mg tablet 15 mg PO DAILY 04/16/23 08/25/23 04/16/23 History potassium chloride 10 mEq 10 meq PO DAILY 04/16/23 08/25/23 08/25/23 History tablet,extended release quetiapine 50 mg tablet 50 mg PO QPM 04/16/23 08/25/23 08/24/23 History Allergies Allergy/AdvReac Type Severity Reaction Status Date / Time codeine Allergy Unknown Verified 04/16/23 12:06 iodine Allergy ADR-Itching Verified 08/25/23 19:31 Current Medications Generic Name Dose Route Start Last Admin Trade Name Freq PRN Reason Stop Dose Admin Budesonide 0.5 mg 08/26/23 08:00 08/26/23 08:32 Budesonide 0.5 Mg/2 Ml Neb INHALATION 0.5 mg BID.RESPIRATORY LISA Administration Fluoxetine HCl 20 mg 08/26/23 09:00 08/26/23 08:44 Fluoxetine 20 Mg Capsule PO Not Given DAILY LISA Pantoprazole Sodium 40 mg/ 100 mls @ 20 mls/hr 08/25/23 20:15 08/26/23 10:45 Sodium Chloride IV 8 mg/hr .Q5H LISA 20 mls/hr Administration 8 MG/HR Ceftriaxone Sodium 1,000 mg/ 50 mls @ 100 mls/hr 08/26/23 04:00 08/26/23 07:24 Sodium Chloride IV Infused Q24H LISA Infusion Protocol Sodium Chloride 1,000 mls @ 70 mls/hr 08/26/23 09:00 08/26/23 08:59 Sodium Chloride 0.9% IV 70 mls/hr .[id number] LISA Administration Levothyroxine Sodium 112 mcg 08/26/23 09:00 08/26/23 08:44 Levothyroxine 112 Mcg Tablet PO Not Given DAILY LISA Sucralfate 1 gm 08/25/23 21:00 08/26/23 10:23 Sucralfate 1 Gm Tablet PO Not Given AC&BEDTIME LISA PFSH Anesthesia Medical History Osteoarthritis Gout Fibromyalgia Allergic rhinitis Psoriasis Pulmonary nodule Chronic hypoxic respiratory failure Systolic heart failure Asthma COPD (chronic obstructive pulmonary disease) Depression Hyperlipidemia Left renal mass Hypothyroidism Hypertension Surgical History History of colonoscopy History of tubal ligation History of cardiac cath History of cholecystectomy Family History Father Multiple myeloma Myocardial infarction Mother Alzheimer's dementia Diabetes mellitus, type 2 Social History Smoking and tobacco/nicotine status: current every day tobacco/nicotine user Alcohol intake: never Substance/Drug Use: never Data Anesthesia 08/26/23 04:08 08/26/23 04:08 Short CBC 08/25/23 08/26/23 Range/Units 20:12 04:08 WBC 15.54 H 14.06 H (3.29-11.43) 10^3/uL Hgb 7.20 L 8.40 L (11.27-16.99) g/dL Hct 23.6 L 26.9 L (36-47) % MCV 83.7 L 81.8 L (85-98) fl Plt Count 402 H 326 (157-399) 10^3/cmm Neut % (Auto) 83.0 78.9 % Neut # (Auto) 12.90 H 11.09 H (1.8-7.7) 10^3/uL BMP 08/25/23 08/26/23 20:12 04:08 Sodium 135 L 131 L Potassium 4.0 4.1 Chloride 104 103 Carbon Dioxide 21 L 21 L BUN 17 18 Creatinine 1.1 H 1.1 H Glucose 147 H 121 H Calcium 8.8 8.8 Liver Function 08/25/23 Range/Units 20:12 Total Bilirubin 0.9 (0.15-1.2) mg/dL AST 16 (0-32) U/L ALT 6 (0-33) U/L Alkaline Phosphatase 138 H (35-105) U/L Albumin 2.1 L (3.5-5.2) g/dL Urine 08/25/23 Range/Units 21:39 Urine Color Dark yellow (Yellow) Urine Appearance Hazy A (CLEAR) Urine pH 5 (5-7) Ur Specific [place] 1.015 (1.005-1.030) Urine Protein Neg (Negative) Urine Glucose (UA) Norm (Normal) Urine Ketones Negative (Negative) Urine Nitrate Positive H (Negative) Urine Bilirubin Neg (Negative) Ur Leukocyte Esterase 1+ H (Negative) Urine RBC 10-15 H (0-2) /hpf Urine WBC 5-10 H (0-5) /hpf Blood Bank 08/25/23 20:12 Blood Type O Positive Rho(D) Type Rh positive Antibody Screen Negative Coags 08/25/23 20:12 PT 16.60 H INR 1.30 H D-Dimer 4.02 H Cardiac Studies: 2 No Data to Display
[2023-08-26 14:18] LABS: Basophils % 0.3 %; Eosinophils % 0.2 %; Hematocrit 26.6 % (36-47); Lymphocytes # 1.4 10^3/uL (0.8-4.8); Mean Corpuscular HGB Conc 31.2 g/dL (30-55); Mean Corpuscular Hemoglobin 25.7 pg (27-33); Mean Corpuscular Volume 82.4 fl (85-98); Mean Platelet Volume 8.6 fL (7.4-10.4); Monocytes % 7.6 %; Neutrophils # 10.08 10^3/uL (1.8-7.7); Neutrophils % 80.2 %; Nucleated Red Blood Cells % 0 %; Platelet Count 381 10^3/cmm (157-399); Red Blood Count 3.23 10^6/uL (3.85-5.65); Red Cell Distribution Width 16.5 % (12.1-15.1); White Blood Count 12.56 10^3/uL (3.29-11.43)
--- NOTE | 2023-08-26 14:28 | P.CONIM_ITS ---
Providers/Reason For Consult 2 Consulting Physician/Specialty*: Dr. Atilio Diaz, DO/General surgery Reason for Consult*: GI bleed Attending Physician: Chelo Zaldivar MD History of Present Illness History of Present Illness Li Fofana is a 67 year old female who was transferred from [facility] due to a GI bleed. She reports that she has been having black stools for the last few weeks but that her bowel movement last night was not black at all. She denies any hematochezia. She denies any significant abdominal pain, nausea, emesis and/or diarrhea. Imaging shows a left renal mass. She has required blood transfusions and hospitalist consulted general surgery for possible EGD. She denies any fever or chills Review of Systems 2 General: Reports: 10 or more systems reviewed and unremarkable except in HPI and below Medications/Allergies Home Medications Medication Instructions Recorded Confirmed Last Taken Type albuterol sulfate 90 mcg/actuation 2 puff inhalation Q4H PRN 04/16/23 08/25/23 Unknown History aerosol inhaler Shortness Of Breath Or Wheezing atorvastatin 40 mg tablet 40 mg PO QPM 04/16/23 08/25/23 08/24/23 History budesonide-formoterol HFA 160 2 puff inhalation BID 04/16/23 08/25/23 08/25/23 History mcg-4.5 mcg/actuation aerosol inhaler (Symbicort) ferrous sulfate 325 mg (65 mg 325 mg PO DAILY 04/16/23 08/25/23 04/16/23 History iron) tablet (Iron (ferrous sulfate)) fluoxetine 20 mg capsule 20 mg PO DAILY 04/16/23 08/25/23 Unknown History levothyroxine 112 mcg tablet 112 mcg PO DAILY 04/16/23 08/25/23 08/25/23 History meloxicam 15 mg tablet 15 mg PO DAILY 04/16/23 08/25/23 04/16/23 History potassium chloride 10 mEq 10 meq PO DAILY 04/16/23 08/25/23 08/25/23 History tablet,extended release quetiapine 50 mg tablet 50 mg PO QPM 04/16/23 08/25/23 08/24/23 History Allergies Allergy/AdvReac Type Severity Reaction Status Date / Time codeine Allergy Unknown Verified 04/16/23 12:06 iodine Allergy ADR-Itching Verified 08/25/23 19:31 Current Medications Generic Name Dose Route Start Last Admin Trade Name Lisa PRN Reason Stop Dose Admin Budesonide 0.5 mg 08/26/23 08:00 08/26/23 08:32 Budesonide 0.5 Mg/2 Ml Neb INHALATION 0.5 mg BID.RESPIRATORY LISA Administration Fluoxetine HCl 20 mg 08/26/23 09:00 08/26/23 08:44 Fluoxetine 20 Mg Capsule PO Not Given DAILY LISA Pantoprazole Sodium 40 mg/ 100 mls @ 20 mls/hr 08/25/23 20:15 08/26/23 10:45 Sodium Chloride IV 8 mg/hr .Q5H LISA 20 mls/hr Administration 8 MG/HR Ceftriaxone Sodium 1,000 mg/ 50 mls @ 100 mls/hr 08/26/23 04:00 08/26/23 07:24 Sodium Chloride IV Infused Q24H LISA Infusion Protocol Sodium Chloride 1,000 mls @ 70 mls/hr 08/26/23 09:00 08/26/23 08:59 Sodium Chloride 0.9% IV 70 mls/hr .[id number] LISA Administration Levothyroxine Sodium 112 mcg 08/26/23 09:00 08/26/23 08:44 Levothyroxine 112 Mcg Tablet PO Not Given DAILY LISA Sucralfate 1 gm 08/25/23 21:00 08/26/23 10:23 Sucralfate 1 Gm Tablet PO Not Given AC&BEDTIME LISA PFSH Acute 2 PFSH: Medical History Osteoarthritis Gout Fibromyalgia Allergic rhinitis Psoriasis Pulmonary nodule Chronic hypoxic respiratory failure Systolic heart failure Asthma COPD (chronic obstructive pulmonary disease) Depression Hyperlipidemia Left renal mass Hypothyroidism Hypertension Surgical History History of colonoscopy History of tubal ligation History of cardiac cath History of cholecystectomy Family History Father Multiple myeloma Myocardial infarction Mother Alzheimer's dementia Diabetes mellitus, type 2 Social History Smoking and tobacco/nicotine status: current every day tobacco/nicotine user Alcohol intake: never Substance/Drug Use: never Vitals/I&O/Wt Last Vital Signs Temp 97.8 F 08/26/23 04:00 Pulse 77 08/26/23 12:59 Resp 20 H 08/26/23 12:59 BP 141/64 08/26/23 12:59 Pulse Ox 100 08/26/23 12:59 O2 Del Method Nasal Cannula 08/26/23 08:32 O2 Flow Rate 4 08/26/23 08:32 08/25/23 08/26/23 08/26/23 22:59 06:59 14:59 Intake Total 0 / 0 439.667 / 439.667 144 / 144 Output Total 200 / 200 200 / 200 Balance -200 / -200 439.667 / 239.667 -56 / -56 Weight last 48 hrs Weight 162 lb Weight 162 lb Weight 162 lb Physical Exam 2 Narrative: General : Patient is well developed , no acute distress, oriented x3 Head : Normal cephalic, a-traumatic. Ears : Pinnae and external canal are normal. Hearing is normal. Eyes : PERRLA, Sclera and injection are normal. No conjunctival discharge. Nose : Mucous membranes are without erythema. Throat : buccal mucosa is normal, gums are without significant recession or hypertrophy. Lungs : Equal chest rise bilaterally, no use of accessory muscles, trachea is midline. Cor : Rate and rhythm are normal. Abdomen : Soft, ND, NT, no g/r/m Extremities : No edema, no cyanosis or clubbing, dorsalis pedis pulses are present bilaterally, non-tender to palpation of calves. Upper extremities are normal bilaterally. Back : non-tender to palpation, no CVA tenderness. Neuro : CN II - XII intact, Upper and lower extremities have equal and full strength Data 08/26/23 13:42 08/26/23 04:08 A&P Assessment and plan (1) Melena: (2) Microcytic anemia: Plan Continue Protonix IV twice daily EGD The risks and benefits of the procedure, including bleeding, infection, intestinal perforation requiring surgery, missed lesion were explained to the patient. The patient is understanding of the risks and wishes to proceed. Coding Level of Care Code 04808 Diagnoses Melena K92.1 Microcytic anemia D50.9
--- NOTE | 2023-08-26 14:55 | ANE.PACU2 ---
Inpatient post-anesthesia follow up: Airway intact: Yes Vital signs: Temperature 97.8 F Pulse Rate 77 Respiratory Rate 20 Blood Pressure 141/64 Pulse Oximetry 100 Oxygen Delivery Me thod Nasal Cannula Oxygen Flow Rate 4 Fraction of Inspir ed Oxygen Hydration adequate: Yes Nausea and vomiting: No Pain level: 1 Mental status: Baseline
--- NOTE | 2023-08-26 16:35 | PC.NURSE ---
Physician Orders: Discontinue protonix gtt and replace with protonix IVP 40 BID
[2023-08-26] MEDS: quetiapine 25 mg Tablet 50 MG PO (17:34)
[2023-08-26] MEDS: sucralfate 1 gm Tablet PO ×2 (17:34→20:24)
[2023-08-26] MEDS: atorvastatin 40 mg Tablet PO (17:34)
[2023-08-26] MEDS: pantoprazole 40 mg SDV IVP (17:34)
[2023-08-26] MEDS: albuterol 2.5 mg/3 mL Neb INHALATION (19:57)
[2023-08-27] VITALS (51 sets, daily range): BP systolic 98–142; BP diastolic 45–83; PULSE 66–91; RESP 4–29; TEMP 36.6–37.6; O2SAT 90–100; BMI 26.1
[2023-08-27] MEDS: cefTRIAXone 1,000 MG in sodium chloride 0.9% (plus) 50 ML 100 MG IV (03:40)
[2023-08-27] MEDS: sodium chloride 0.9% 1,000 ML 70 ML IV (03:40)
[2023-08-27 04:29] LABS: Basophils # 0.1 10^3/uL (0.0-0.1); Basophils % 1.3 %; Eosinophils # 0.1 10^3/uL (0.0-0.8); Eosinophils % 1.1 %; Hematocrit 25.2 % (36-47); Lymphocytes # 1.4 10^3/uL (0.8-4.8); Lymphocytes % 16.5 %; Mean Corpuscular Hemoglobin 25.2 pg (27-33); Mean Corpuscular Volume 81.6 fl (85-98); Mean Platelet Volume 8.3 fL (7.4-10.4); Monocytes # 0.9 10^3/uL (0.2-0.9); Monocytes % 10.9 %; Neutrophils # 5.51 10^3/uL (1.8-7.7); Neutrophils % 67.4 %; Nucleated Red Blood Cells # 0.1 /100WBC; Nucleated Red Blood Cells % 0.6 %; Platelet Count 347 10^3/cmm (157-399); Red Blood Count 3.09 10^6/uL (3.85-5.65); Red Cell Distribution Width 16.8 % (12.1-15.1); White Blood Count 8.18 10^3/uL (3.29-11.43)
[2023-08-27] MEDS: sucralfate 1 gm Tablet PO ×4 (06:12→21:18)
[2023-08-27] MEDS: levothyroxine 112 mcg Tablet PO (08:26)
[2023-08-27] MEDS: pantoprazole 40 mg SDV IVP ×2 (08:26→17:07)
[2023-08-27] MEDS: fluoxetine 20 mg Capsule PO (08:26)
[2023-08-27] MEDS: budesonide 0.5 mg/2 mL Neb INHALATION ×2 (08:52→20:01)
[2023-08-27] MEDS: albuterol 2.5 mg/3 mL Neb INHALATION ×2 (08:52→20:01)
[2023-08-27 14:48] LABS: Basophils # 0.1 10^3/uL (0.0-0.1); Basophils % 0.6 %; Eosinophils # 0.1 10^3/uL (0.0-0.8); Eosinophils % 0.6 %; Hematocrit 25.5 % (36-47); Lymphocytes # 1.4 10^3/uL (0.8-4.8); Lymphocytes % 13.8 %; Mean Corpuscular HGB Conc 30.6 g/dL (30-55); Mean Corpuscular Hemoglobin 25.6 pg (27-33); Mean Corpuscular Volume 83.6 fl (85-98); Mean Platelet Volume 8.4 fL (7.4-10.4); Monocytes % 9.4 %; Neutrophils # 7.53 10^3/uL (1.8-7.7); Neutrophils % 74.8 %; Nucleated Red Blood Cells % 0 %; Platelet Count 334 10^3/cmm (157-399); Red Blood Count 3.05 10^6/uL (3.85-5.65); Red Cell Distribution Width 16.7 % (12.1-15.1); White Blood Count 10.07 10^3/uL (3.29-11.43)
--- NOTE | 2023-08-27 16:25 | P.PN_ITS ---
Subjective 2 Subjective: Patient seen and examined. She reports that she has not had a bowel movement for the last 2 days and that her last 1 was the first 1 that was not melanotic. Denies any abdominal pain. Tolerating diet Vitals/I&O/Wt Last Vital Signs Temp 98 F 08/27/23 12:00 Pulse 66 08/27/23 15:00 Resp 17 08/27/23 12:00 BP 122/45 08/27/23 12:00 Pulse Ox 90 08/27/23 12:00 O2 Del Method Nasal Cannula 08/27/23 08:53 O2 Flow Rate 4 08/27/23 08:53 08/27/23 08/27/23 08/27/23 06:59 14:59 22:59 Intake Total 1050 / 1294 700 / 700 Output Total 500 / 700 950 / 950 Balance 550 / 594 -250 / -250 Weight last 48 hrs Weight 162 lb Weight 162 lb Weight 162 lb Weight 162 lb Weight 162 lb Physical Exam 2 Narrative: General: No acute distress, awake alert and oriented x 3 Abdomen: Soft, nontender, nondistended Data 08/27/23 14:31 08/26/23 04:08 Micro: Microbiology 08/25/23 21:39 Urine Culture - Preliminary Urine,Clean Catch Gram Negative Rods A&P Assessment and plan (1) Melena: (2) Microcytic anemia: Plan EGD within normal limits If she has further melena, she will require a capsule endoscopy. Follow-up with my office if this happens Otherwise surgically stable for discharge Medical management per hospitalist Attestations 2 Medical Necessity Statement*: Per primary Coding Level of Care Code 72381 Diagnoses Melena K92.1 Microcytic anemia D50.9
--- NOTE | 2023-08-27 16:59 | PM.PN ---
Subjective Subjective: No acute overnight events noted. She does not have any new complaints Medications: Reviewed: Yes Vitals/I&O/Wt Last Vital Signs Temp 98 F 08/27/23 12:00 Pulse 66 08/27/23 15:00 Resp 17 08/27/23 12:00 BP 122/45 08/27/23 12:00 Pulse Ox 90 08/27/23 12:00 O2 Del Method Nasal Cannula 08/27/23 08:53 O2 Flow Rate 4 08/27/23 08:53 08/27/23 08/27/23 08/27/23 06:59 14:59 22:59 Intake Total 1050 / 1294 700 / 700 Output Total 500 / 700 950 / 950 Balance 550 / 594 -250 / -250 Weight last 48 hrs Weight 73.482 kg Weight 73.482 kg Weight 73.482 kg Weight 73.482 kg Weight 73.482 kg Physical Exam Narrative: General: Patient is awake and alert. Cardiovascular: RRR. No gallops. No murmurs. No peripheral edema. Lungs: Clear to auscultation, no use of accessory muscles, no crackles or wheezes. On nasal cannula support at 3 L . Abdomen: Normal bowel sounds, abdomen soft and nontender. Extremities: No cyanosis or clubbing. Neurological: Moves all 4 extremities. Data 08/27/23 14:31 08/26/23 04:08 Micro: Microbiology 08/25/23 21:39 Urine Culture - Preliminary Urine,Clean Catch Gram Negative Rods A&P Assessment and plan (1) Acute GI bleeding: (2) Microcytic anemia: (3) Depression: (4) Left renal mass: (5) Hypothyroidism: Plan Li Fofana is a 67 year old female with a past medical history significant for hypertension, hypothyroidism, hyperlipidemia, severe recurrent major depression, fibromyalgia, gout, arthritis, asthma, coronary artery disease, COPD, allergic rhinitis, systolic heart failure, chronic hypoxic respiratory failure, and left-sided renal mass suspicious for RCC who transfers from [facility] for further evaluation of GI bleeding. 1. GI bleed stable, EGD showed no active source of bleeding. hemoglobin trending down. monitor CBC in am and probable discharge in am. 2. UTI Continue with IV fluids and ceftriaxone 1 g daily prelim culture shows gram negative rods, Follow-up final urine cultures regular diet DVT prophylaxis with SCD GI prophylaxis, already on PPI drip She is DNR. Attestations Medical Necessity Statement*: She needs continued hospitalization not crossing more than 2 midnights for monitoring of anemia. Hemoglobin trending down but EGD showed no active source of bleeding. Time Spent in Patient Care: 15 minutes Coding Level of Care Code Acute Code for Chg Fwd Diagnoses Acute GI bleeding K92.2 Microcytic anemia D50.9 Depression F32.A Left renal mass N28.89 Hypothyroidism E03.9 Time Spent (min) 15
[2023-08-27] MEDS: quetiapine 25 mg Tablet 50 MG PO (17:07)
[2023-08-27] MEDS: atorvastatin 40 mg Tablet PO (17:07)
[2023-08-28] VITALS (67 sets, daily range): BP systolic 76–150; BP diastolic 45–93; PULSE 67–172; RESP 9–42; TEMP 36.4–36.7; O2SAT 95–100; BMI 27.1
[2023-08-28] MEDS: cefTRIAXone 1,000 MG in sodium chloride 0.9% (plus) 50 ML 100 MG IV (03:26)
[2023-08-28 03:59] LABS: Basophils # 0.1 10^3/uL (0.0-0.1); Basophils % 0.7 %; Eosinophils # 0.1 10^3/uL (0.0-0.8); Eosinophils % 1.2 %; Hematocrit 23.6 % (36-47); Lymphocytes # 1.5 10^3/uL (0.8-4.8); Lymphocytes % 16.2 %; Mean Corpuscular HGB Conc 30.1 g/dL (30-55); Mean Corpuscular Hemoglobin 25.5 pg (27-33); Mean Corpuscular Volume 84.9 fl (85-98); Monocytes # 0.7 10^3/uL (0.2-0.9); Monocytes % 7.8 %; Neutrophils # 6.91 10^3/uL (1.8-7.7); Neutrophils % 73.3 %; Nucleated Red Blood Cells % 0 %; Platelet Count 360 10^3/cmm (157-399); Red Blood Count 2.78 10^6/uL (3.85-5.65); Red Cell Distribution Width 16.6 % (12.1-15.1); White Blood Count 9.44 10^3/uL (3.29-11.43)
[2023-08-28 04:16] LABS: Alanine Aminotransferase 8 U/L (0-33); Albumin Level 1.7 g/dL (3.5-5.2); Alkaline Phosphatase 133 U/L (35-105); Anion Gap 10.2 (5-19); Aspartate Amino Transferase 27 U/L (0-32); Blood Urea Nitrogen 10 mg/dL (8-23); Calcium 8.5 mg/dL (8.5-10.5); Carbon Dioxide 22 mmol/L (22-29); Chloride 105 mmol/L (98-107); Creatinine Clr Calc Pharmacy 69.0336; Globulin 4.3 g/dL (1.3-4.6); Glomerular Filtration Rate 71.3 mL/min (90-130); Glucose 103 mg/dL (65-115); Osmolality Calculated 277 mOsm/kg (285-295); Potassium 3.2 mmol/L (3.5-5.1); Sodium 134 mmol/L (136-145); Total Bilirubin 0.4 mg/dL (0.15-1.2)
[2023-08-28] MEDS: sucralfate 1 gm Tablet PO ×4 (06:03→20:01)
--- NOTE | 2023-08-28 07:46 | PC.NURSE ---
awake up to bedside voided large amts unable to have bm at this time am breakfast served ..
[2023-08-28] MEDS: budesonide 0.5 mg/2 mL Neb INHALATION ×2 (08:07→19:44)
[2023-08-28] MEDS: albuterol 2.5 mg/3 mL Neb INHALATION (08:07)
[2023-08-28] MEDS: pantoprazole 40 mg SDV IVP ×2 (08:34→16:30)
[2023-08-28] MEDS: fluoxetine 20 mg Capsule PO (08:34)
[2023-08-28] MEDS: levothyroxine 112 mcg Tablet PO (08:34)
[2023-08-28] MEDS: sennosides-docusate Tablet 2 TAB PO (09:08)
--- NOTE | 2023-08-28 10:52 | P.PN_ITS ---
Subjective 2 Subjective: No acute overnight events noted. She was seen at bedside this morning, denies any complaint of dizziness shortness of breath weakness or chest pain. She reports she did not had a bowel movement since last 3 days, and denies any active bleeding Medications: Reviewed: Yes Vitals/I&O/Wt Last Vital Signs Temp 98.1 F 08/28/23 04:00 Pulse 72 08/28/23 10:00 Resp 24 H 08/28/23 10:00 BP 123/57 08/28/23 10:00 Pulse Ox 100 08/28/23 10:00 O2 Del Method Nasal Cannula 08/28/23 08:07 O2 Flow Rate 3 08/28/23 08:07 08/27/23 08/28/23 08/28/23 22:59 06:59 14:59 Intake Total 1350 / 2050 200 / 200 Output Total 325 / 1275 700 / 1975 300 / 300 Balance 1025 / 775 -700 / 75 -100 / -100 Weight last 48 hrs Weight 76.374 kg Weight 73.482 kg Weight 73.482 kg Physical Exam 2 Narrative: General: Patient is awake and alert. Cardiovascular: RRR. No gallops. No murmurs. No peripheral edema. Lungs: Clear to auscultation, no use of accessory muscles, no crackles or wheezes. On nasal cannula support at 3 L . Abdomen: Normal bowel sounds, abdomen soft and nontender. Extremities: No cyanosis or clubbing. Neurological: Moves all 4 extremities. Data 08/28/23 03:07 08/28/23 03:07 Micro: Microbiology 08/25/23 21:39 Urine Culture - Preliminary Urine,Clean Catch Gram Negative Rods A&P Assessment and plan (1) Acute GI bleeding: (2) Microcytic anemia: (3) Depression: (4) Left renal mass: (5) Hypothyroidism: Plan Li Fofana is a 67 year old female with a past medical history significant for hypertension, hypothyroidism, hyperlipidemia, severe recurrent major depression, fibromyalgia, gout, arthritis, asthma, coronary artery disease, COPD, allergic rhinitis, systolic heart failure, chronic hypoxic respiratory failure, and left- sided renal mass suspicious for RCC who transfers from [facility] for further evaluation of GI bleeding. 1. GI bleed stable, EGD showed no active source of bleeding. hemoglobin trending down. Discussed with GI Dr. Diaz, wants to proceed with colonoscopy in a.m. Bowel prep today monitor CBC at 6pm today and transfusion as needed 2. UTI Continue with IV fluids and ceftriaxone 1 g daily prelim culture shows gram negative rods, Follow-up final urine cultures regular diet DVT prophylaxis with SCD GI prophylaxis, IV Protonix 40 mg twice daily She is DNR. Attestations 2 Medical Necessity Statement*: She needs continued hospitalization more than 2 midnights for probable GI bleed and follow-up colonoscopy for further intervention, she also needs blood transfusion if hemoglobin less than 7. Time Spent in Patient Care: 15 minutes Coding Level of Care Code Acute Code for Chg Fwd Diagnoses Acute GI bleeding K92.2 Microcytic anemia D50.9 Depression F32.A Left renal mass N28.89 Hypothyroidism E03.9 Time Spent (min) 15
[2023-08-28] MEDS: magnesium citrate Btl 296 mL PO (11:39)
--- NOTE | 2023-08-28 12:52 | PC.NURSE ---
converted to afib rvr rate 150 doctor called and orders for ekg stat and metoproplol
--- NOTE | 2023-08-28 13:08 | ECG_ITS ---
[facility] Test Date: 2023-08-28 Pat Name: Li Fofana Department: Room: [facility] Gender: Female Community Health Nurse: : 1955 Requested By: Chelo Zaldivar Order Number: [id number] Burt MD: Ruben Rose M.D. Measurements Intervals [place] Rate: 159 P: 0 ND: 0 QRS: 1 QRSD: 89 T: 0 QT: 205 QTc: 334 Interpretive Statements ATRIAL FIBRILLATION WITH RAPID VENTRICULAR RESPONSE NONSPECIFIC ST & T-WAVE ABNORMALITY CRITICAL TEST RESULT Compared to ECG 04/16/2023 13:49:18 Sinus rhythm no longer present Short ND interval no longer present T-wave abnormality still present Electronically Signed On 08-28-2023 20:51:05 CDT by Ruben Rose M.D. [id number]
[2023-08-28] MEDS: metoprolol tartrate 1 mg/1 mL SDV 5 mL 5 MG IVP (13:11)
[2023-08-28] MEDS: bisacodyl 5 mg Tablet 10 MG PO (14:36)
[2023-08-28] MEDS: dilTIAZem 100 MG in sodium chloride 0.9% (add-van) 100 ML IV (15:48)
--- NOTE | 2023-08-28 15:55 | PC.NURSE ---
heart rate elevated again at 150 colonoscopy prep stopped .. lab ordered and cardizem gtt started no c/o pain or short of breath o2 in use
[2023-08-28 16:12] LABS: Basophils # 0.1 10^3/uL (0.0-0.1); Basophils % 0.7 %; Eosinophils # 0.1 10^3/uL (0.0-0.8); Eosinophils % 0.9 %; Hematocrit 27.7 % (36-47); Lymphocytes # 1.3 10^3/uL (0.8-4.8); Mean Corpuscular HGB Conc 30.3 g/dL (30-55); Mean Corpuscular Hemoglobin 25.2 pg (27-33); Mean Corpuscular Volume 83.2 fl (85-98); Mean Platelet Volume 8.4 fL (7.4-10.4); Monocytes # 0.9 10^3/uL (0.2-0.9); Monocytes % 7.6 %; Neutrophils # 9.46 10^3/uL (1.8-7.7); Nucleated Red Blood Cells % 0 %; Platelet Count 359 10^3/cmm (157-399); Red Blood Count 3.33 10^6/uL (3.85-5.65); Red Cell Distribution Width 16.7 % (12.1-15.1); White Blood Count 11.96 10^3/uL (3.29-11.43)
[2023-08-28] MEDS: quetiapine 25 mg Tablet 50 MG PO (16:30)
[2023-08-28] MEDS: atorvastatin 40 mg Tablet PO (16:30)
[2023-08-28 16:43] LABS: Troponin T (5th) Once 35 ng/L (0-10)
[2023-08-28] MEDS: potassium chloride ER 20 mEq Tablet 40 MEQ PO ×2 (17:28→22:49)
--- NOTE | 2023-08-28 19:19 | PM.CONSULT ---
Providers/Reason For Consult Consulting Physician/Specialty*: Miles Rose MD/cardiology Reason for Consult*: Patient with a new onset of atrial fibrillation Attending Physician: Chelo Zaldivar MD History of Present Illness History of Present Illness Li Fofana is a 67 year old female who was transferred to our facility from an outside hospital where she presented with complaints of progressive weakness and frequent fall. She was found to have microcytic anemia with a hemoglobin of 6.5. She received 1 unit of blood transfusion and was transferred to our facility for further evaluation and management. She received another 2 more units of blood since admission to our hospital. She was getting prepped for possible endoscopy tomorrow. She was found to be in atrial fibrillation with rapid ventricular rate on the monitor. Cardiology consult is requested for further cardiac evaluation recommendations. This patient has no previous history for any cardiac arrhythmia. She had a cardiac catheterization in 2016 for chest pain and abnormal stress test?. She was told to have mild coronary artery disease at that time. She had a second cardiac catheterization in April of last year as part of the preop evaluation. According to the patient, she was getting ready for possible nephrectomy in [place]. She had a pre op stress test which was told to be abnormal?. Subsequent cardiac catheterization revealed mild coronary artery disease, essentially unchanged from the previous coronary angiogram findings in 2017. Both these procedures were done at the [facility]. Other details are not available at this time. Patient also is known to have high blood pressure, dyslipidemia, hypothyroidism, gouty arthritis, reactive airway disease/COPD and? Heart failure. Her LV ejection fraction is not known at this point. She denies any chest pain or chest tightness. She has no fever, chills or cough. No palpitation or dizziness. She was having progressive weakness and fall at home. Since the blood transfusion, she seems to be feeling better. She never had any syncopal episode. Never had any palpitation or unusual dizziness. She has a history of smoking abuse, smoking 1 pack a day for 40 years or so. Currently she smokes half pack a day. No alcohol abuse or any other substance abuse. She has 5 sisters. 2 of them have atrial fibrillation. One of the sisters has a pacemaker. No other relevant family history. Review of Systems Narrative: CONSTITUTIONAL: No fever or chills. EYES: No blurring of vision or other visual disturbances lately. ENT: No hoarseness of voice, auditory disturbances or sore throat. CARDIOVASCULAR: As mentioned above. RESPIRATORY: No significant cough. GASTROINTESTINAL:? GI bleed GENITOURINARY: Left renal mass-renal cell carcinoma INTEGUMENTARY: No skin rashes or history of skin cancer. NEURO: No transient ischemic attacks or amaurosis. PSYCHIATRIC: History of depressive illness HEMATOLOGIC: No bleeding disorders or significant anemia. ENDOCRINE: No history of polyuria or polydipsia. MUSCULOSKELETAL: No recent joint pain or swelling. ALLERGY/IMMUNOLOGY: As mentioned above. Medications/Allergies Home Medications Medication Instructions Recorded Confirmed Last Taken Type albuterol sulfate 90 mcg/actuation 2 puff inhalation Q4H PRN 04/16/23 08/25/23 Unknown History aerosol inhaler Shortness Of Breath Or Wheezing atorvastatin 40 mg tablet 40 mg PO QPM 04/16/23 08/25/23 08/24/23 History budesonide-formoterol HFA 160 2 puff inhalation BID 04/16/23 08/25/23 08/25/23 History mcg-4.5 mcg/actuation aerosol inhaler (Symbicort) ferrous sulfate 325 mg (65 mg 325 mg PO DAILY 04/16/23 08/25/23 04/16/23 History iron) tablet (Iron (ferrous sulfate)) fluoxetine 20 mg capsule 20 mg PO DAILY 04/16/23 08/25/23 Unknown History levothyroxine 112 mcg tablet 112 mcg PO DAILY 04/16/23 08/25/23 08/25/23 History meloxicam 15 mg tablet 15 mg PO DAILY 04/16/23 08/25/23 04/16/23 History potassium chloride 10 mEq 10 meq PO DAILY 04/16/23 08/25/23 08/25/23 History tablet,extended release quetiapine 50 mg tablet 50 mg PO QPM 04/16/23 08/25/23 08/24/23 History Allergies Allergy/AdvReac Type Severity Reaction Status Date / Time codeine Allergy Unknown Verified 04/16/23 12:06 iodine Allergy ADR-Itching Verified 08/25/23 19:31 Current Medications Generic Name Dose Route Start Last Admin Trade Name Freq PRN Reason Stop Dose Admin Albuterol Sulfate 2.5 mg 08/25/23 20:15 08/28/23 08:07 Albuterol 2.5 Mg/3 Ml Neb INHALATION 2.5 mg Q4H.RESPIRATORY PRN Administration SHORTNESS OF BREATH Atorvastatin Calcium 40 mg 08/26/23 18:00 08/28/23 16:30 Atorvastatin 40 Mg Tablet PO 40 mg QPM LISA Administration Budesonide 0.5 mg 08/26/23 08:00 08/28/23 08:07 Budesonide 0.5 Mg/2 Ml Neb INHALATION 0.5 mg BID.RESPIRATORY LISA Administration Fluoxetine HCl 20 mg 08/26/23 09:00 08/28/23 08:34 Fluoxetine 20 Mg Capsule PO 20 mg DAILY LISA Administration Ceftriaxone Sodium 1,000 mg/ 50 mls @ 100 mls/hr 08/26/23 04:00 08/28/23 07:06 Sodium Chloride IV Infused Q24H LISA Infusion Protocol Diltiazem HCl 100 mg/ Sodium 100 mls @ 0 mls/hr 08/28/23 15:45 08/28/23 16:12 Chloride IV 10 mg/hr .Q0M LISA 10 mls/hr Titration Protocol Per Protocol Levothyroxine Sodium 112 mcg 08/26/23 09:00 08/28/23 08:34 Levothyroxine 112 Mcg Tablet PO 112 mcg DAILY LISA Administration Pantoprazole Sodium 40 mg 08/26/23 18:00 08/28/23 16:30 Pantoprazole 40 Mg Sdv IVP 40 mg BID LISA Administration Potassium Chloride 40 meq 08/28/23 17:00 08/28/23 17:28 Potassium Chloride Er 20 Meq Tablet PO 08/28/23 23:01 40 meq Q6H LISA Administration Quetiapine Fumarate 50 mg 08/26/23 18:00 08/28/23 16:30 Quetiapine 25 Mg Tablet PO 50 mg QPM LISA Administration Sucralfate 1 gm 08/25/23 21:00 08/28/23 16:30 Sucralfate 1 Gm Tablet PO 1 gm AC&BEDTIME LISA Administration PFSH Acute PFSH: Medical History Osteoarthritis Gout Fibromyalgia Allergic rhinitis Psoriasis Pulmonary nodule Chronic hypoxic respiratory failure Systolic heart failure Asthma COPD (chronic obstructive pulmonary disease) Depression Hyperlipidemia Left renal mass Hypothyroidism Hypertension Surgical History History of colonoscopy History of tubal ligation History of cardiac cath History of cholecystectomy Family History Father Multiple myeloma Myocardial infarction Mother Alzheimer's dementia Diabetes mellitus, type 2 Social History Smoking and tobacco/nicotine status: current every day tobacco/nicotine user Alcohol intake: never Substance/Drug Use: never Vitals/I&O/Wt Last Vital Signs Temp 98.1 F 08/28/23 04:00 Pulse 85 08/28/23 18:30 Resp 21 H 08/28/23 18:30 BP 115/67 08/28/23 18:30 Pulse Ox 100 08/28/23 12:00 O2 Del Method Nasal Cannula 08/28/23 08:07 O2 Flow Rate 3 08/28/23 08:07 08/28/23 08/28/23 08/28/23 06:59 14:59 22:59 Intake Total 550 / 550 752 / 1302 Output Total 700 / 1975 600 / 600 551 / 1151 Balance -700 / 75 -50 / -50 201 / 151 Weight last 48 hrs Weight 168 lb 6 oz Weight 162 lb Weight 162 lb Physical Exam Narrative: GENERAL: The patient is alert and oriented times three. Not in any acute distress. HEENT: No significant pallor, icterus or lymphadenopathy.Oral cavity: There are no mucous membrane lesions. NECK: Trachea appears to be central. No masses noted. No JVD or thyromegaly appreciated. RESPIRATORY: Chest is symmetrical. No intercostals muscle retraction or any accessory muscle activation. There is no chest wall tenderness. Breath sounds are heard bilaterally. No rales or rhonchi heard. No evidence of any consolidation. BREASTS: Deferred. HEART: The heart sounds are normal. No S3 or S4. No significant murmurs. No pericardial rub ABDOMEN: No vessel pulsations or distention. No tenderness. No organomegaly appreciated. Bowel sounds are normally heard. : Deferred. RECTAL: Deferred. LYMPHATIC: No lymphadenopathy noted in the neck. EXTREMITIES: No edema or cyanosis. No clubbing. MUSCULOSKELETAL: No acute joint deformities or swelling SKIN: There are no significant rashes or ecchymosis NEUROPSYCHIATRIC: The patient is alert and oriented x3. Appears to be in a good mood. No tremors or rigidity noted. Data 08/28/23 16:01 08/28/23 03:07 Other Labs: Laboratory Last Values WBC 11.96 10^3/uL (3.29-11.43) H 08/28/23 16:01 RBC 3.33 10^6/uL (3.85-5.65) L 08/28/23 16:01 Hgb 8.40 g/dL (11.27-16.99) L 08/28/23 16:01 Hct 27.7 % (36-47) L 08/28/23 16:01 MCV 83.2 fl (85-98) L 08/28/23 16:01 MCH 25.2 pg (27-33) L 08/28/23 16:01 MCHC 30.3 g/dL (30-55) 08/28/23 16:01 RDW 16.7 % (12.1-15.1) H 08/28/23 16:01 Plt Count 359 10^3/cmm (157-399) 08/28/23 16:01 MPV 8.4 fL (7.4-10.4) 08/28/23 16:01 Neut % (Auto) 79.0 % 08/28/23 16:01 Lymph % (Auto) 11.0 % 08/28/23 16: [place] % (Auto) 7.6 % 08/28/23 16:01 Eos % (Auto) 0.9 % 08/28/23 16:01 Baso % (Auto) 0.7 % 08/28/23 16:01 Neut # (Auto) 9.46 10^3/uL (1.8-7.7) H 08/28/23 16: Lymph # (Auto) 1.3 10^3/uL (0.8-4.8) 08/28/23 16:01 [place] # (Auto) 0.9 10^3/uL (0.2-0.9) 08/28/23 16:01 Eos # (Auto) 0.1 10^3/uL (0.0-0.8) 08/28/23 16:01 Baso # (Auto) 0.1 10^3/uL (0.0-0.1) 08/28/23 16:01 Nucleated RBC % (auto) 0 % 08/28/23 16:01 Nucleated RBCs # 0.0 /100WBC 08/28/23 16:01 PT 16.60 SECONDS (12.1-14.9) H 08/25/23 20:12 INR 1.30 (0.8-1.2) H 08/25/23 20:12 D-Dimer 4.02 ug/mLFEU (0-0.59) H 08/25/23 20:12 Sodium 134 mmol/L (136-145) L 08/28/23 03:07 Potassium 3.2 mmol/L (3.5-5.1) L 08/28/23 03:07 Chloride 105 mmol/L (98-107) 08/28/23 03:07 Carbon Dioxide 22 mmol/L (22-29) 08/28/23 03:07 Anion Gap 10.2 (5-19) 08/28/23 03:07 BUN 10 mg/dL (8-23) 08/28/23 03:07 Creatinine 0.8 mg/dL (0.5-0.9) 08/28/23 03:07 GFR Calculation 71.3 mL/min (90-130) L 08/28/23 03:07 Glucose 103 mg/dL (65-115) 08/28/23 03:07 Calculated Osmolality 277 mOsm/kg (285-295) L 08/28/23 03:07 Calcium 8.5 mg/dL (8.5-10.5) 08/28/23 03:07 Phosphorus 2.6 mg/dL (2.5-4.5) 08/25/23 20:12 Magnesium 1.8 mg/dL (1.7-2.3) 08/25/23 20:12 Iron 41 ug/dL (37-145) 08/25/23 20:12 Iron 41 ug/dL (37-145) 08/25/23 20:12 TIBC 143 mcg/dl 08/25/23 20:12 % Saturation 28.6 % (20-50) 08/25/23 20:12 Unsat Iron Binding 102 ug/dL (112-347) L 08/25/23 20:12 Ferritin 1708 ng/mL (15-150) H 08/25/23 20:12 Total Bilirubin 0.4 mg/dL (0.15-1.2) 08/28/23 03:07 AST 27 U/L (0-32) 08/28/23 03:07 ALT 8 U/L (0-33) 08/28/23 03:07 Alkaline Phosphatase 133 U/L (35-105) H 08/28/23 03:07 Troponin T 5th Gen ng/L 35 ng/L (0-10) H 08/28/23 16:01 Total Protein 6.0 g/dL (6.6-8.7) L 08/28/23 03:07 Albumin 1.7 g/dL (3.5-5.2) L 08/28/23 03:07 Globulin 4.3 g/dL (1.3-4.6) 08/28/23 03:07 Urine Color Dark yellow (Yellow) 08/25/23 21:39 Urine Appearance Hazy (CLEAR) A 08/25/23 21:39 Urine pH 5 (5-7) 08/25/23 21:39 Ur Specific [place] 1.015 (1.005-1.030) 08/25/23 21:39 Urine Protein Neg (Negative) 08/25/23 21:39 Urine Glucose (UA) Norm (Normal) 08/25/23 21:39 Urine Ketones Negative (Negative) 08/25/23 21:39 Urine Blood 2+ (Negative) H 08/25/23 21:39 Urine Nitrate Positive (Negative) H 08/25/23 21:39 Urine Bilirubin Neg (Negative) 08/25/23 21:39 Urine Urobilinogen Neg mg/dL (Negative) 08/25/23 21:39 Ur Leukocyte Esterase 1+ (Negative) H 08/25/23 21:39 Urine RBC 10-15 /hpf (0-2) H 08/25/23 21:39 Urine WBC 5-10 /hpf (0-5) H 08/25/23 21:39 Ur Squamous Epith Cells 0-4 /hpf (0-5) H 08/25/23 21:39 Amorphous Sediment 1+ /hpf 08/25/23 21:39 Urine Bacteria 2+ /hpf (NONE) H 08/25/23 21:39 Coarse Granular Casts 0-4 /lpf H 08/25/23 21:39 Urine Mucus 2+ /hpf 08/25/23 21:39 Blood Type O Positive 08/25/23 20:12 Rho(D) Type Rh positive 08/25/23 20:12 Antibody Screen Negative 08/25/23 20:12 Crossmatch See Detail 08/25/23 20:12 Micro: Microbiology 08/28/23 16:15 Occult Blood (FIT) - Final Stool - Stool Aspirate 08/25/23 21:39 Urine Culture - Final Urine,Clean Catch Escherichia coli EKG 1: My Interpretation: The EKG from today, 08/28/2023 revealed atrial fibrillation with rapid ventricular rate of [address]-T changes. Normal QRS duration. A&P Assessment and plan (1) Atrial fibrillation with rapid ventricular response: Patient seems to have a new onset of atrial fibrillation with rapid ventricular rate. She is hemodynamically stable at this point. The IV Cardizem seems to be controlling the heart rate. Because of the anemia and? GI bleed, we may hold off on any anticoagulation at this time. May do an echocardiogram to evaluate LV function and rule out any other pathology (2) Hypertension: Currently normotensive Qualifiers: Hypertension type: primary hypertension Qualified Code(s): I10 - Essential (primary) hypertension (3) Hyperlipidemia: May continue on the current medications. Qualifiers: Hyperlipidemia type: mixed hyperlipidemia Qualified Code(s): E78.2 - Mixed hyperlipidemia (4) Left renal mass: Scheduled to have surgery in [place]. (5) Microcytic anemia: Etiology unclear. Apparently no evidence of any active GI bleed at this time. GI workup is pending (6) Atherosclerotic heart disease: ? Mild coronary artery disease by angiogram x 2. We will try to get the medical records from [facility]. Minimal current specific intervention at this point. Qualifiers: Coronary Disease-Associated Artery/Lesion type: [place] artery [place] vs. transplanted heart: [place] heart Associated angina: without angina Qualified Code(s): I25.10 - Atherosclerotic heart disease of [place] coronary artery without angina pectoris Plan Patient will be closely monitored on telemetry. We might consider starting her on Betapace in the morning. May continue on the Cardizem for the night. Based on the patient clinical progress, further recommendations will be made. Thank you for the opportunity to evaluate this patient and make these recommendations Consult Attestations Medical Necessity Statement: Patient requires continued hospital stay for close monitoring and further management Coding Level of Care Code 82552 Diagnoses Atrial fibrillation with rapid ventricular response I48.91 Primary hypertension I10 Hypertension type: primary hypertension Mixed hyperlipidemia E78.2 Hyperlipidemia type: mixed hyperlipidemia Left renal mass N28.89 Microcytic anemia D50.9 Atherosclerosis of [place] coronary artery of [place] heart without angina pectoris I25.10 Coronary Disease-Associated Artery/Lesion type: [place] artery [place] vs. transplanted heart: [place] heart Associated angina: without angina
--- NOTE | 2023-08-28 20:47 | P.PN_ITS ---
Subjective 2 Subjective: Patient seen and examined. Started having bowel prep for possible colonoscopy because her hemoglobin continues to fall. Her bowel movement was tested for occult blood and was found to be negative. She denies any abdominal pain. Vitals/I&O/Wt Last Vital Signs Temp 97.5 F L 08/28/23 20:00 Pulse 86 08/28/23 20:00 Resp 25 H 08/28/23 20:00 BP 116/54 08/28/23 20:00 Pulse Ox 95 08/28/23 19:44 O2 Del Method Nasal Cannula 08/28/23 19:44 O2 Flow Rate 3 08/28/23 19:44 08/28/23 08/28/23 08/28/23 06:59 14:59 22:59 Intake Total 550 / 550 752 / 1302 Output Total 700 / 1975 600 / 600 551 / 1151 Balance -700 / 75 -50 / -50 201 / 151 Weight last 48 hrs Weight 168 lb 6 oz Weight 162 lb Weight 162 lb Physical Exam 2 Narrative: General: No acute distress, awake alert and oriented x 3 Abdomen: Soft, nontender, nondistended Data 08/28/23 16:01 08/28/23 03:07 Micro: Microbiology 08/28/23 16:15 Occult Blood (FIT) - Final Stool - Stool Aspirate 08/25/23 21:39 Urine Culture - Final Urine,Clean Catch Escherichia coli A&P Assessment and plan (1) Melena: Resolved (2) Microcytic anemia: Plan EGD within normal limits She is Hemoccult negative so colonoscopy was canceled If she has further melena, she will require a capsule endoscopy. Follow-up with my office if this happens Otherwise surgically stable for discharge Medical management per hospitalist Attestations 2 Medical Necessity Statement*: Per primary Coding Level of Care Code 47804 Diagnoses Melena K92.1 Microcytic anemia D50.9
[2023-08-28 23:08] LABS: Hematocrit 27.4 % (36-47)
[2023-08-29] VITALS (66 sets, daily range): BP systolic 86–139; BP diastolic 42–96; PULSE 55–109; RESP 14–25; TEMP 36.3–37; O2SAT 93–100; BMI 27.1
[2023-08-29] MEDS: dilTIAZem 100 MG in sodium chloride 0.9% (add-van) 100 ML IV (02:25)
[2023-08-29] MEDS: cefTRIAXone 1,000 MG in sodium chloride 0.9% (plus) 50 ML 100 MG IV (03:23)
--- NOTE | 2023-08-29 06:00 | USCV_ITS ---
Li Fofana Age: 67 Gender: F : 1955 Exam Date: 08/29/2023 07:00 Ordering Phys: Chelo Zladivar MD Technologist: ERNESTINE [place] [facility] [place] t[place] BP: 126 / 66 HR: 118 Rhythm: Sinus Technical Quality: Adequate MEASUREMENTS (Male / Female) Normal Values 2D ECHO LV Diastolic Diameter PLAX 4.3 cm 4.2 - 5.9 / 3.9 - 5.3 cm IVS Diastolic Thickness 1.5 cm 0.6 - 1.0 / 0.6 - 0.9 cm IVS Systolic Thickness 1.5 cm LVPW Diastolic Thickness 1.3 cm 0.6 - 1.0 / 0.6 - 0.9 cm LVPW Systolic Thickness 1.6 cm LVOT Diameter 2.0 cm LV Ejection Fraction 2D Teich 68.9 % LV Ejection Fraction MOD 2C 64.3 % LV Ejection Fraction 2C AL 62.4 % LA Diameter 3.1 cm RA Systolic Volume 4C AL 51.7 ml RA Systolic Volume 4C MOD 51.0 ml LA Sys Volume AL 63.2 cm cubed Aorta at Sinotubular Diameter 2.9 cm IVC Diameter 1.4 cm M-MODE LA Ao Ratio MM 1.2 AV Cusp Separation MM 1.9 cm DOPPLER AV Peak Velocity 117.0 cm/s LVOT Peak Velocity 92.0 cm/s AV Area Cont Eq vti 3.1 cm squared AV Area Cont Eq pk 2.5 cm squared MV Area PHT 4.0 cm squared Mitral E to A Ratio 3.6 TV Peak Velocity 186.5 cm/s TR Peak Velocity 207.0 cm/s TR Peak Gradient 17.1 mmHg Right Atrial Pressure 3.0 mmHg Pulmonary Artery Systolic Pressu 20.1 mmHg PV Peak Velocity 117.0 cm/s FINDINGS Left Ventricle Left ventricle is normal size. LV systolic function is normal with EF of 60-65%. No regional wall motion abnormalities are seen. Right Ventricle Normal in size and function Right Atrium Normal in size Left Atrium Dilated Mitral Valve Structurally normal mitral valve. Trace mitral regurgitation. Aortic Valve Grossly normal. No significant stenosis or regurgitation. Tricuspid Valve Trace tricuspid regurgitation. Insufficient TR jet to calculate RVSP Pulmonic Valve Not well visualized Pericardium Normal Aorta Normal in size IVC Appears to be normal CONCLUSIONS LV systolic function is normal with EF of 60-65% Left atrial dilation Trace mitral regurgitation Trace tricuspid regurgitation No comparison studies are available. Germain Casarez MD (Electronically Signed) Final Date: 29 August 2023 08:23 S
[2023-08-29] MEDS: sucralfate 1 gm Tablet PO ×2 (06:22→12:17)
[2023-08-29 08:31] LABS: Basophils # 0.1 10^3/uL (0.0-0.1); Basophils % 0.7 %; Eosinophils # 0.1 10^3/uL (0.0-0.8); Eosinophils % 1.2 %; Hematocrit 29.8 % (36-47); Lymphocytes # 1.3 10^3/uL (0.8-4.8); Lymphocytes % 12.7 %; Mean Corpuscular HGB Conc 30.2 g/dL (30-55); Mean Corpuscular Hemoglobin 25.2 pg (27-33); Mean Corpuscular Volume 83.5 fl (85-98); Mean Platelet Volume 8.4 fL (7.4-10.4); Monocytes # 0.8 10^3/uL (0.2-0.9); Monocytes % 7.6 %; Neutrophils # 7.91 10^3/uL (1.8-7.7); Neutrophils % 77.3 %; Nucleated Red Blood Cells % 0 %; Platelet Count 351 10^3/cmm (157-399); Red Blood Count 3.57 10^6/uL (3.85-5.65); Red Cell Distribution Width 16.7 % (12.1-15.1); White Blood Count 10.23 10^3/uL (3.29-11.43)
[2023-08-29] MEDS: levothyroxine 112 mcg Tablet PO (08:41)
[2023-08-29] MEDS: pantoprazole 40 mg SDV IVP ×2 (08:43→17:54)
[2023-08-29] MEDS: budesonide 0.5 mg/2 mL Neb INHALATION (09:10)
--- NOTE | 2023-08-29 09:20 | PM.PN ---
Subjective Subjective: Patient is feeling okay. She is still in atrial fibrillation with a controlled ventricular response rate. She had an episode of A-fib with rapid rate this morning as she was sitting up in the bedside commode. She was somewhat dizzy at that time. Currently she is back in the bed with no symptoms. Her heart rate is mostly under control. No chest pain or shortness of breath. We are still waiting for the medical records from [facility] in [place]. Medications: Medication Review Details: Current Medications Acetaminophen (Acetaminophen 325 Mg Tablet) 650 mg PO Q6H PRN PRN Reason: Mild/Mod Pain Or Temp >/= 101 Albuterol Sulfate (Albuterol 2.5 Mg/3 Ml Neb) 2.5 mg INHALATION Q4H.RESPIRATORY PRN PRN Reason: SHORTNESS OF BREATH Last Admin: 08/28/23 08:07 Dose: 2.5 mg Atorvastatin Calcium (Atorvastatin 40 Mg Tablet) 40 mg PO QPM LISA Last Admin: 08/28/23 16:30 Dose: 40 mg Budesonide (Budesonide 0.5 Mg/2 Ml Neb) 0.5 mg INHALATION BID.RESPIRATORY LISA Last Admin: 08/29/23 09:10 Dose: 0.5 mg Flecainide Acetate (Flecainide 100 Mg Tablet) 50 mg PO Q12H LISA Fluoxetine HCl (Fluoxetine 20 Mg Capsule) 20 mg PO DAILY LISA Last Admin: 08/29/23 08:48 Dose: Not Given Ceftriaxone Sodium 1,000 mg/ (Sodium Chloride) 50 mls @ 100 mls/hr IV Q24H LISA; Protocol Last Infusion: 08/29/23 04:05 Dose: Infused Diltiazem HCl 100 mg/ Sodium (Chloride) 100 mls @ 0 mls/hr IV .Q0M LISA; Protocol Last Admin: 08/29/23 02:25 Dose: 2.5 mg/hr, 2.5 mls/hr Levothyroxine Sodium (Levothyroxine 112 Mcg Tablet) 112 mcg PO DAILY LISA Last Admin: 08/29/23 08:41 Dose: 112 mcg Metoprolol Tartrate (Metoprolol Tartrate 25 Mg Tablet) 25 mg PO BID@0900,2100 LISA Ondansetron HCl (Ondansetron 2 Mg/Ml Sdv 2 Ml) 4 mg IVP Q8H PRN PRN Reason: vomiting, or N/V if npo Ondansetron HCl (Ondansetron 4 Mg Tablet) 4 mg PO Q8H PRN PRN Reason: NAUSEA Pantoprazole Sodium (Pantoprazole 40 Mg Sdv) 40 mg IVP BID [facility] Last Admin: 08/29/23 08:43 Dose: 40 mg Quetiapine Fumarate (Quetiapine 25 Mg Tablet) 50 mg PO QPM [facility] Last Admin: 08/28/23 16:30 Dose: 50 mg Sucralfate (Sucralfate 1 Gm Tablet) 1 gm PO AC&BEDTIME [facility] Last Admin: 08/29/23 06:22 Dose: 1 gm Vitals/I&O/Wt Last Vital Signs Temp 97.3 F L 08/29/23 03:37 Pulse 101 H 08/29/23 09:11 Resp 18 08/29/23 09:11 BP 99/56 08/29/23 06:15 Pulse Ox 96 08/29/23 09:11 O2 Del Method Nasal Cannula 08/29/23 09:11 O2 Flow Rate 4 08/29/23 09:11 08/28/23 08/29/23 08/29/23 22:59 06:59 14:59 Intake Total 803.333 / 1353.333 336.667 / 1690.000 Output Total 551 / 1151 Balance 252.333 / 202.333 336.667 / 539.000 Weight last 48 hrs Weight 168 lb Weight 168 lb 6 oz Physical Exam Narrative: GENERAL: The patient is alert and oriented times three. Not in any acute distress. HEENT: No significant pallor, icterus or lymphadenopathy.Oral cavity: There are no mucous membrane lesions. NECK: Trachea appears to be central. No masses noted. No JVD or thyromegaly appreciated. RESPIRATORY: Chest is symmetrical. No intercostals muscle retraction or any accessory muscle activation. There is no chest wall tenderness. Breath sounds are heard bilaterally. No rales or rhonchi heard. No evidence of any consolidation. BREASTS: Deferred. HEART: The heart sounds are normal. No S3 or S4. No significant murmurs. No pericardial rub ABDOMEN: No vessel pulsations or distention. No tenderness. No organomegaly appreciated. Bowel sounds are normally heard. : Deferred. RECTAL: Deferred. LYMPHATIC: No lymphadenopathy noted in the neck. EXTREMITIES: No edema or cyanosis. No clubbing. MUSCULOSKELETAL: No acute joint deformities or swelling SKIN: There are no significant rashes or ecchymosis NEUROPSYCHIATRIC: The patient is alert and oriented x3. Appears to be in a good mood. No tremors or rigidity noted. Data 08/29/23 08:22 08/28/23 03:07 Other Labs: Laboratory Last Values WBC 10.23 10^3/uL (3.29-11.43) 08/29/23 08: RBC 3.57 10^6/uL (3.85-5.65) L 08/29/23 08:22 Hgb 9.00 g/dL (11.27-16.99) L 08/29/23 08: Hct 29.8 % (36-47) L 08/29/23 08: MCV 83.5 fl (85-98) L 08/29/23 08:22 MCH 25.2 pg (27-33) L 08/29/23 08: MCHC 30.2 g/dL (30-55) 08/29/23 08: RDW 16.7 % (12.1-15.1) H 08/29/23 08:22 Plt Count 351 10^3/cmm (157-399) 08/29/23 08: MPV 8.4 fL (7.4-10.4) 08/29/23 08:22 Neut % (Auto) 77.3 % 08/29/23 08:22 Lymph % (Auto) 12.7 % 08/29/23 08:22 [place] % (Auto) 7.6 % 08/29/23 08:22 Eos % (Auto) 1.2 % 08/29/23 08:22 Baso % (Auto) 0.7 % 08/29/23 08:22 Neut # (Auto) 7.91 10^3/uL (1.8-7.7) H 08/29/23 08:22 Lymph # (Auto) 1.3 10^3/uL (0.8-4.8) 08/29/23 08:22 [place] # (Auto) 0.8 10^3/uL (0.2-0.9) 08/29/23 08:22 Eos # (Auto) 0.1 10^3/uL (0.0-0.8) 04/15/24 08:22 Baso # (Auto) 0.1 10^3/uL (0.0-0.1) 08/29/23 08:22 Nucleated RBC % (auto) 0 % 08/29/23 08:22 Nucleated RBCs # 0.0 /100WBC 08/29/23 08:22 PT 16.60 SECONDS (12.1-14.9) H 08/25/23 20:12 INR 1.30 (0.8-1.2) H 08/25/23 20:12 D-Dimer 4.02 ug/mLFEU (0-0.59) H 08/25/23 20:12 Sodium 134 mmol/L (136-145) L 08/28/23 03:07 Potassium 3.2 mmol/L (3.5-5.1) L 08/28/23 03:07 Chloride 105 mmol/L (98-107) 08/28/23 03:07 Carbon Dioxide 22 mmol/L (22-29) 08/28/23 03:07 Anion Gap 10.2 (5-19) 08/28/23 03:07 BUN 10 mg/dL (8-23) 08/28/23 03:07 Creatinine 0.8 mg/dL (0.5-0.9) 08/28/23 03:07 GFR Calculation 71.3 mL/min (90-130) L 08/28/23 03:07 Glucose 103 mg/dL (65-115) 08/28/23 03:07 Calculated Osmolality 277 mOsm/kg (285-295) L 08/28/23 03:07 Calcium 8.5 mg/dL (8.5-10.5) 08/28/23 03:07 Phosphorus 2.6 mg/dL (2.5-4.5) 08/25/23 20:12 Magnesium 1.8 mg/dL (1.7-2.3) 08/25/23 20:12 Iron 41 ug/dL (37-145) 08/25/23 20:12 Iron 41 ug/dL (37-145) 08/25/23 20:12 TIBC 143 mcg/dl 08/25/23 20:12 % Saturation 28.6 % (20-50) 08/25/23 20:12 Unsat Iron Binding 102 ug/dL (112-347) L 08/25/23 20:12 Ferritin 1708 ng/mL (15-150) H 08/25/23 20:12 Total Bilirubin 0.4 mg/dL (0.15-1.2) 08/28/23 03:07 AST 27 U/L (0-32) 08/28/23 03:07 ALT 8 U/L (0-33) 08/28/23 03:07 Alkaline Phosphatase 133 U/L (35-105) H 08/28/23 03:07 Troponin T 5th Gen ng/L 35 ng/L (0-10) H 08/28/23 16:01 Total Protein 6.0 g/dL (6.6-8.7) L 08/28/23 03:07 Albumin 1.7 g/dL (3.5-5.2) L 08/28/23 03:07 Globulin 4.3 g/dL (1.3-4.6) 08/28/23 03:07 Urine Color Dark yellow (Yellow) 08/25/23 21:39 Urine Appearance Hazy (CLEAR) A 08/25/23 21:39 Urine pH 5 (5-7) 08/25/23 21:39 Ur Specific [place] 1.015 (1.005-1.030) 08/25/23 21:39 Urine Protein Neg (Negative) 08/25/23 21:39 Urine Glucose (UA) Norm (Normal) 08/25/23 21:39 Urine Ketones Negative (Negative) 08/25/23 21:39 Urine Blood 2+ (Negative) H 08/25/23 21:39 Urine Nitrate Positive (Negative) H 08/25/23 21:39 Urine Bilirubin Neg (Negative) 08/25/23 21:39 Urine Urobilinogen Neg mg/dL (Negative) 08/25/23 21:39 Ur Leukocyte Esterase 1+ (Negative) H 08/25/23 21:39 Urine RBC 10-15 /hpf (0-2) H 08/25/23 21:39 Urine WBC 5-10 /hpf (0-5) H 08/25/23 21:39 Ur Squamous Epith Cells 0-4 /hpf (0-5) H 08/25/23 21:39 Amorphous Sediment 1+ /hpf 08/25/23 21:39 Urine Bacteria 2+ /hpf (NONE) H 08/25/23 21:39 Coarse Granular Casts 0-4 /lpf H 08/25/23 21:39 Urine Mucus 2+ /hpf 08/25/23 21:39 Blood Type O Positive 08/25/23 20:12 Rho(D) Type Rh positive 08/25/23 20:12 Antibody Screen Negative 08/25/23 20:12 Crossmatch See Detail 08/25/23 20:12 Micro: Microbiology 08/28/23 16:15 Occult Blood (FIT) - Final Stool - Stool Aspirate 08/25/23 21:39 Urine Culture - Final Urine,Clean Catch Escherichia coli A&P Assessment and plan (1) Atrial fibrillation with rapid ventricular response: Since she has normal LV ejection fraction with no structural heart disease, I may go ahead and start her on flecainide 50 mg p.o. twice daily. Will discontinue the IV Cardizem. Also started on metoprolol 25 mg p.o. twice daily. As she need to be closely monitored on telemetry. Based on the clinical response, further management decisions will be made. Because of the anemia, we may hold off on anticoagulation. (2) Hypertension: Currently normotensive Qualifiers: Hypertension type: primary hypertension Qualified Code(s): I10 - Essential (primary) hypertension (3) Hyperlipidemia: May continue on the current medications. Qualifiers: Hyperlipidemia type: mixed hyperlipidemia Qualified Code(s): E78.2 - Mixed hyperlipidemia (4) Left renal mass: Scheduled to have surgery in [place]. (5) Microcytic anemia: Etiology unclear. Apparently no evidence of any active GI bleed at this time. (6) Atherosclerotic heart disease: ? Mild coronary artery disease by angiogram x 2. We will try to get the medical records from [facility]. May not require any specific intervention at this point. Qualifiers: Coronary Disease-Associated Artery/Lesion type: [place] artery [place] vs. transplanted heart: [place] heart Associated angina: without angina Qualified Code(s): I25.10 - Atherosclerotic heart disease of [place] coronary artery without angina pectoris Plan Flecainide 50 mg p.o. twice daily. Lopressor 25 mg p.o. twice daily Discontinue IV Cardizem Based on the clinical progress, further recommendations will be made Attestations Medical Necessity Statement*: Patient requires continued hospital stay for close monitoring and further management Coding Level of Care Code Acute Code for Chg Fwd Diagnoses Atrial fibrillation with rapid ventricular response I48.91 Primary hypertension I10 Hypertension type: primary hypertension Mixed hyperlipidemia E78.2 Hyperlipidemia type: mixed hyperlipidemia Left renal mass N28.89 Microcytic anemia D50.9 Atherosclerosis of [place] coronary artery of [place] heart without angina pectoris I25.10 Coronary Disease-Associated Artery/Lesion type: [place] artery [place] vs. transplanted heart: [place] heart Associated angina: without angina
[2023-08-29] MEDS: metoprolol tartrate 25 mg Tablet PO ×2 (09:36→20:38)
[2023-08-29] MEDS: flecainide 100 mg Tablet 50 MG PO ×2 (09:36→20:38)
--- NOTE | 2023-08-29 12:47 | PC.SOCIAL ---
IMM updated Updated pt & family on IMM. No questions voiced. Provided pt a copy. Initialed, dated, & timed copy in chart.
--- NOTE | 2023-08-29 13:30 | PC.NURSE ---
Pt converted to sinus rhythm out of A-FIb.
--- NOTE | 2023-08-29 13:36 | P.PN_ITS ---
Subjective 2 Subjective: Patient was seen at bedside this morning. She denies any ongoing chest pain shortness of breath dizziness or palpitations. But she had an episode of dizziness and palpitation this morning while having a bowel movement. She denies any blood in stools. She has been hemodynamically stable. Medications: Reviewed: Yes Vitals/I&O/Wt Last Vital Signs Temp 98.4 F 08/29/23 07:15 Pulse 67 08/29/23 12:30 Resp 22 H 08/29/23 12:30 BP 131/61 08/29/23 12:30 Pulse Ox 98 08/29/23 12:30 O2 Del Method Nasal Cannula 08/29/23 12:30 O2 Flow Rate 4 08/29/23 12:30 08/28/23 08/29/23 08/29/23 22:59 06:59 14:59 Intake Total 803.333 / 1353.333 336.667 / 1690.000 650 / 650 Output Total 551 / 1151 700 / 700 Balance 252.333 / 202.333 336.667 / 539.000 -50 / -50 Weight last 48 hrs Weight 76.204 kg Weight 76.374 kg Physical Exam 2 Narrative: General: Patient is awake and alert. Cardiovascular: Normal heart sounds regular rate and rhythm, no murmurs noted Lungs: Clear to auscultation, no use of accessory muscles, no crackles or wheezes. On nasal cannula support at 3 L . Abdomen: Normal bowel sounds, abdomen soft and nontender. Extremities: No cyanosis or clubbing. Neurological: Moves all 4 extremities. Data 08/29/23 08:22 08/28/23 03:07 Micro: Microbiology 08/28/23 16:15 Occult Blood (FIT) - Final Stool - Stool Aspirate 08/25/23 21:39 Urine Culture - Final Urine,Clean Catch Escherichia coli A&P Assessment and plan (1) Acute GI bleeding: (2) Microcytic anemia: (3) Depression: (4) Left renal mass: (5) Hypothyroidism: Plan Li Fofana is a 67 year old female with a past medical history significant for hypertension, hypothyroidism, hyperlipidemia, severe recurrent major depression, fibromyalgia, gout, arthritis, asthma, coronary artery disease, COPD, allergic rhinitis, systolic heart failure, chronic hypoxic respiratory failure, and left- sided renal mass suspicious for RCC who transfers from [facility] for further evaluation of GI bleeding and found to have new onset atrial fibrillation during her hospital course. 1. New onset Atrial fibrillation. A-fib with RVR likely secondary to anemia versus UTI versus stress-induced. As per cardiology recommendation she was started on flecainide 50 mg every 12 hours and metoprolol 25 mg every 12 hours. Discontinued Cardizem drip this morning. She has been rate controlled on current medications and hemodynamically stable. Denies any chest pain or palpitations. 2D echo done yesterday showed LV systolic function is normal with EF of 60-65% Left atrial dilation Trace mitral regurgitation Trace tricuspid regurgitation In view of recent questionable GI bleed and anemia, will hold off on anticoagulation for now. 1. GI bleed Resolved. Hemoglobin this morning was 9.0. She had an hemoglobin of 7.1 yesterday and hence surgery was consulted for as needed colonoscopy. But repeat hemoglobin was 8.4, she denied any blood in stools, so as per surgery there was no need for colonoscopy at this time. 2. UTI Continue with IV fluids and ceftriaxone 1 g daily prelim culture shows gram negative rods, sensitive to IV ceftriaxone. Will repeat urinalysis. cardiac diet DVT prophylaxis with SCD GI prophylaxis, IV Protonix 40 mg twice daily She is DNR. Attestations 2 Medical Necessity Statement*: She needs continued hospitalization for cardiac monitoring for new onset A-fib and IV antibiotics and fluids for UTI Time Spent in Patient Care: 20 minutes Coding Level of Care Code Acute Code for Chg Fwd Diagnoses Acute GI bleeding K92.2 Microcytic anemia D50.9 Depression F32.A Left renal mass N28.89 Hypothyroidism E03.9 Time Spent (min) 20
[2023-08-29] MEDS: atorvastatin 40 mg Tablet PO (17:54)
[2023-08-29] MEDS: quetiapine 25 mg Tablet 50 MG PO (17:54)
[2023-08-29 18:40] LABS: Add Urine Microscopic? YES; Bilirubin Urine 1+ (Negative); Blood Urine 3+ (Negative); Glucose Urine UA Norm (Normal); Ketones Urine 1+ (Negative); Leukocyte Esterase Urine Trace (Negative); Nitrate Urine Negative (Negative); Protein Urine Neg (Negative); Specific Gravity, Urine 1.015 (1.005-1.030); Urine Appearance SL Hazy (CLEAR); Urine Color Dark Yellow (Yellow); Urobilinogen Urine Norm (Negative); pH Urine 5 (5-7)
[2023-08-29 18:41] LABS: Add Urine Culture? No; Bacteria Urine 2+ /hpf; Mucus Urine 1+ /hpf; WBC Urine 0-4 /hpf (0-5)
--- NOTE | 2023-08-29 19:22 | PC.NURSE ---
Shift summary: Pt is doing well. She rested in bed , watching TV for most of shift. Cardizem gtt was infusing at 2.5 mg/hr. Flecanide and metoprolol started PO. Cardizem gtt discontinued this am. She converted to sinus rhythm at 1330. She has remained in sinus rhythm since. afebrile. She has urinated 3 times and had 1 BM today. This afternoon after rhythm conversion she was able to get up to BSC without difficulty, no shortness of breath or dizziness. Her heart rate remained controlled at 85 bpm. 4lpm/NC remains, it is her home O2 amount. Urine was sent for analysis.
[2023-08-30] VITALS (23 sets, daily range): BP systolic 99–134; BP diastolic 47–66; PULSE 53–68; RESP 17–20; TEMP 36.4–37; O2SAT 90–100; BMI 25.7
[2023-08-30] MEDS: cefTRIAXone 1,000 MG in sodium chloride 0.9% (plus) 50 ML 100 MG IV (03:29)
[2023-08-30] MEDS: flecainide 100 mg Tablet 50 MG PO (09:13)
[2023-08-30] MEDS: levothyroxine 112 mcg Tablet PO (09:13)
[2023-08-30] MEDS: fluoxetine 20 mg Capsule PO (09:13)
[2023-08-30] MEDS: metoprolol tartrate 25 mg Tablet PO (09:13)
[2023-08-30] MEDS: pantoprazole 40 mg SDV IVP (09:14)
--- NOTE | 2023-08-30 12:11 | PM.DCS ---
Discharge Providers Date of Admission: 08/25/23 19:07 Date of Discharge: August 30, 2023 Attending Provider at Admission: Irvin Zapien MD Attending Provider at Discharge: Chelo Zaldivar MD Diagnoses at Discharge Discharge Diagnosis (1) Acute GI bleeding: Status: Acute (2) Microcytic anemia: Status: Acute (3) Depression: Status: Acute (4) Left renal mass: Status: Acute (5) Hypothyroidism: Status: Acute Reason for Visit Reason for Visit: Upper GI Bleed Brief History: Li Fofana is a 67 year old female with a past medical history significant for hypertension, hypothyroidism, hyperlipidemia, severe recurrent major depression, fibromyalgia, gout, arthritis, asthma, coronary artery disease, COPD, allergic rhinitis, systolic heart failure, chronic hypoxic respiratory failure, and left-sided renal mass suspicious for RCC who transfers from [facility] for further evaluation of GI bleeding and found to have UTI. Hospital Course Hospital Course She has been treated with IV ceftriaxone for E. coli UTI which is sensitive to ceftriaxone. Her hemoglobin was 8.4 s/p 3 units of packed red blood cells but then it started trending down to 7.8. She received upper GI endoscopy which did not show any active source of bleeding. Hemoglobin was being monitored but since it was trending down to 7.1 plan was for colonoscopy. While she was being prepped for colonoscopy she started having new onset atrial fibrillation with RVR. 2D echo showed left atrial dilatation. EKG was A-fib with RVR no acute ST-T changes and cardiology consulted. She was started on oral flecainide and metoprolol which she tolerated well. She is in normal sinus rate and rhythm. Her hemoglobin has been stable at 9.0. Colonoscopy was canceled in view of no history of blood in stools and stable hemoglobin. She did not receive any further intervention for GI bleed She is doing well and is ready to be discharged home on oral flecainide metoprolol and aspirin for anticoagulation. In view of recent GI bleed. There is no plan for anticoagulation with Eliquis or heparin Follow-up with PCP in 1 week Physical Exam Narrative: General: Patient is awake and alert. Cardiovascular: Normal heart sounds regular rate and rhythm, no murmurs noted Lungs: Clear to auscultation, no use of accessory muscles, no crackles or wheezes. On nasal cannula support at 3 L . Abdomen: Normal bowel sounds, abdomen soft and nontender. Extremities: No cyanosis or clubbing. Neurological: Moves all 4 extremities. Discharge Data Studies Completed and Pending Completed Studies During Hospitalization Category Date Time Status CV. echo complete* [id number] Stat Ultrasound 08/29/23 06:00 Completed Pending at discharge Category Date Time Status Pathology: Surgical [PTH] Routine Pth 08/26/23 14:43 Received Laboratory Results WBC 10.23 10^3/uL (3.29-11.43) 08/29/23 08:22 RBC 3.57 10^6/uL (3.85-5.65) L 08/29/23 08:22 Hgb 9.00 g/dL (11.27-16.99) L 08/29/23 08:22 Hct 29.8 % (36-47) L 08/29/23 08:22 MCV 83.5 fl (85-98) L 08/29/23 08:22 MCH 25.2 pg (27-33) L 08/29/23 08:22 MCHC 30.2 g/dL (30-55) 08/29/23 08:22 RDW 16.7 % (12.1-15.1) H 08/29/23 08:22 Plt Count 351 10^3/cmm (157-399) 08/29/23 08:22 MPV 8.4 fL (7.4-10.4) 08/29/23 08:22 Neut % (Auto) 77.3 % 08/29/23 08:22 Lymph % (Auto) 12.7 % 08/29/23 08:22 [place] % (Auto) 7.6 % 08/29/23 08:22 Eos % (Auto) 1.2 % 08/29/23 08:22 Baso % (Auto) 0.7 % 08/29/23 08:22 Neut # (Auto) 7.91 10^3/uL (1.8-7.7) H 08/29/23 08:22 Lymph # (Auto) 1.3 10^3/uL (0.8-4.8) 08/29/23 08:22 [place] # (Auto) 0.8 10^3/uL (0.2-0.9) 08/29/23 08:22 Eos # (Auto) 0.1 10^3/uL (0.0-0.8) 08/29/23 08:22 Baso # (Auto) 0.1 10^3/uL (0.0-0.1) 08/29/23 08:22 Nucleated RBC % (auto) 0 % 08/29/23 08:22 Nucleated RBCs # 0.0 /100WBC 08/29/23 08:22 PT 16.60 SECONDS (12.1-14.9) H 08/25/23 20:12 INR 1.30 (0.8-1.2) H 08/25/23 20:12 D-Dimer 4.02 ug/mLFEU (0-0.59) H 08/25/23 20:12 Sodium 134 mmol/L (136-145) L 08/28/23 03:07 Potassium 3.2 mmol/L (3.5-5.1) L 08/28/23 03:07 Chloride 105 mmol/L (98-107) 08/28/23 03:07 Carbon Dioxide 22 mmol/L (22-29) 08/28/23 03:07 Anion Gap 10.2 (5-19) 08/28/23 03:07 BUN 10 mg/dL (8-23) 08/28/23 03:07 Creatinine 0.8 mg/dL (0.5-0.9) 08/28/23 03:07 GFR Calculation 71.3 mL/min (90-130) L 08/28/23 03:07 Glucose 103 mg/dL (65-115) 08/28/23 03:07 Calculated Osmolality 277 mOsm/kg (285-295) L 08/28/23 03:07 Calcium 8.5 mg/dL (8.5-10.5) 08/28/23 03:07 Phosphorus 2.6 mg/dL (2.5-4.5) 08/25/23 20:12 Magnesium 1.8 mg/dL (1.7-2.3) 08/25/23 20:12 Iron 41 ug/dL (37-145) 08/25/23 20:12 Iron 41 ug/dL (37-145) 08/25/23 20:12 TIBC 143 mcg/dl 08/25/23 20:12 % Saturation 28.6 % (20-50) 08/25/23 20:12 Unsat Iron Binding 102 ug/dL (112-347) L 08/25/23 20:12 Ferritin 1708 ng/mL (15-150) H 08/25/23 20:12 Total Bilirubin 0.4 mg/dL (0.15-1.2) 08/28/23 03:07 AST 27 U/L (0-32) 08/28/23 03:07 ALT 8 U/L (0-33) 08/28/23 03:07 Alkaline Phosphatase 133 U/L (35-105) H 08/28/23 03:07 Troponin T 5th Gen ng/L 35 ng/L (0-10) H 08/28/23 16:01 Total Protein 6.0 g/dL (6.6-8.7) L 08/28/23 03:07 Albumin 1.7 g/dL (3.5-5.2) L 08/28/23 03:07 Globulin 4.3 g/dL (1.3-4.6) 08/28/23 03:07 Urine Color Dark yellow (Yellow) 08/29/23 18:05 Urine Appearance Sl hazy (CLEAR) A 08/29/23 18:05 Urine pH 5 (5-7) 08/29/23 18:05 Ur Specific [place] 1.015 (1.005-1.030) 08/29/23 18:05 Urine Protein Neg (Negative) 08/29/23 18:05 Urine Glucose (UA) Norm (Normal) 08/29/23 18:05 Urine Ketones 1+ (Negative) H 08/29/23 18:05 Urine Blood 3+ (Negative) H 08/29/23 18:05 Urine Nitrate Negative (Negative) 08/29/23 18:05 Urine Bilirubin 1+ (Negative) H 08/29/23 18:05 Urine Urobilinogen Norm mg/dL (Negative) 08/29/23 18:05 Ur Leukocyte Esterase Trace (Negative) H 08/29/23 18:05 Urine RBC 5-10 /hpf (0-2) H 08/29/23 18:05 Urine WBC 0-4 /hpf (0-5) H 08/29/23 18:05 Ur Squamous Epith Cells 10-15 /hpf (0-5) H 08/29/23 18:05 Amorphous Sediment Not Reportable 08/29/23 18:05 Urine Bacteria 2+ /hpf (NONE) H 08/29/23 18:05 Coarse Granular Casts 0-4 /lpf H 08/25/23 21:39 Urine Mucus 1+ /hpf 08/29/23 18:05 Blood Type O Positive 08/25/23 20:12 Rho(D) Type Rh positive 08/25/23 20:12 Antibody Screen Negative 08/25/23 20:12 Crossmatch See Detail 08/25/23 20:12 Vitals Last Vital Signs Temp 97.6 F 08/30/23 12:00 Pulse 53 L 08/30/23 11:00 Resp 17 08/30/23 11:00 BP 102/47 08/30/23 11:00 Pulse Ox 100 08/30/23 11:00 O2 Del Method Nasal Cannula 08/30/23 11:00 O2 Flow Rate 3 08/30/23 11:00 Discharge Plan Discharge Patient Disposition: Home Condition: Stable Prescriptions: New flecainide 100 mg Tablet 50 mg PO Q12H 7 Days Qty: 14 0RF fluoxetine 20 mg Capsule 20 mg PO DAILY 7 Days Qty: 7 0RF metoprolol tartrate 25 mg Tablet 25 mg PO BID@0900,2100 7 Days Qty: 14 0RF aspirin 81 mg capsule 81 mg PO DAILY 30 Days Qty: 30 0RF Continued atorvastatin 40 mg tablet 40 mg PO QPM meloxicam 15 mg tablet 15 mg PO DAILY potassium chloride 10 mEq tablet extended release 10 meq PO DAILY ferrous sulfate [Iron (ferrous sulfate)] 325 mg (65 mg iron) Tablet 325 mg PO DAILY albuterol sulfate 90 mcg/actuation HFA aerosol inhaler 2 puff INHALATION Q4H PRN (Reason: Shortness Of Breath Or Wheezing) levothyroxine 112 mcg tablet 112 mcg PO DAILY quetiapine 50 mg tablet 50 mg PO QPM budesonide-formoterol [Symbicort] 160-4.5 mcg/actuation HFA aerosol inhaler 2 puff INHALATION BID Discharge Orders: Discharge Order (Routine); Ordered 08/30/23 Ordered By: Chelo Zaldivar Discharge Diet: Cardiac Discharge Activity: Increase activity as tolerated Patient Instructions: GI Discharge Instructions, Opioid Safety Activity Restrictions/Additional Instructions: follow up PCP in 1 week Follow up cardiology in 1 week Discharge Attestations Time Spent in Discharge Care*: less than 30 min Quality Metrics Clinical Quality Measures [ No reported AMI, CVA or VTE this stay] Coding Level of Care Code Acute Code for Chg Fwd Diagnoses Acute GI bleeding K92.2 Microcytic anemia D50.9 Depression F32.A Left renal mass N28.89 Hypothyroidism E03.9 Time Spent (min) 20
== END 2023-08-30 14:05 | disposition home or self-care (01) | DRG 378 ==
PROVIDERS: Internal Medicine; Surgery; Admitting Provider Family Medicine; Visit Provider Internal Medicine
PROC: 0DJ08ZZ Inspection of Upper Intestinal Tract, Via Natural or Artificial Opening Endoscopic (ICD-10-PCS; CPT 43235; principal; 2023-08-26 14:00)
DX: K92.2 Gastrointestinal hemorrhage, unspecified (principal); I50.22 Chronic systolic (congestive) heart failure; N39.0 Urinary tract infection, site not specified; J96.11 Chronic respiratory failure with hypoxia; D50.9 Iron deficiency anemia, unspecified; F32.A Depression, unspecified; N28.89 Other specified disorders of kidney and ureter; E03.9 Hypothyroidism, unspecified; B96.20 Unspecified Escherichia coli [E. coli] as the cause of diseases classified elsewhere; I48.91 Unspecified atrial fibrillation; Z79.82 Long term (current) use of aspirin; E78.5 Hyperlipidemia, unspecified; I11.0 Hypertensive heart disease with heart failure; Z72.0 Tobacco use; I25.10 Atherosclerotic heart disease of native coronary artery without angina pectoris; J44.9 Chronic obstructive pulmonary disease, unspecified; M19.90 Unspecified osteoarthritis, unspecified site
CPT/HCPCS: 36415; 36430; 43239; 80048; 80053; 81001; 82274; 82728; 83540; 83550; 83735; 84100; 84484; 85014; 85018; 85025; 85378; 85610; 86850; 86900; 86920; 87077; 87086; 87186; 88305; 88342; 90471; 90732; 93005; 93306; 94640; 96376; C9113; J0696; J2704; J3490; J7030; J7613; J7626; P9040

== ENCOUNTER 2024-09-14 11:48 | Emergency (ER) | payer MEDICARE, SELFPAY ==
[2024-09-14 11:49] VITALS: BP 136/85; PULSE 73; RESP 16; TEMP 36.4; O2SAT 97; BMI 20.9
--- NOTE | 2024-09-14 11:49 | XR_ITS ---
WS: [email or web address] Portable AP upright chest, 09/14/2024 Clinical Data: syncope Comparison: Portable chest, 04/16/2023 Findings: No nodules, masses or effusions are seen. The heart is normal. The pulmonary vascularity is not increased. No pneumonia or pneumothorax is seen. The diaphragms are flattened. Monitor leads are on the chest wall. There are right upper quadrant cholecystectomy clips. XR/XR chest 1V portable [id number] Impression: Hyperinflation.
--- NOTE | 2024-09-14 11:50 | ECG_ITS ---
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 Measurements Intervals [place] Rate: 72 P: 60 [place]: 162 QRS: -19 QRSD: 94 T: 25 QT: 395 QTc: 433 Interpretive Statements ATRIAL FIBRILLATION SEPTAL MYOCARDIAL INFARCTION , OF INDETERMINATE AGE [40+ ms Q WAVE IN V1/V2] Compared to ECG 08/28/2023 13:08:24 Ventricular premature complex(es) now present Myocardial infarct finding now present T-wave abnormality no longer present Electronically Signed On 09-17-2024 09:26:47 CDT by Germain Casarez M.D. [email or web address]
--- NOTE | 2024-09-14 11:53 | CT_ITS ---
WS: [email or web address] CT scan of the head, 09/14/2024 Clinical Data: syncope Comparison: None. DLP: 1099.[address] scans at [facility] use at least one of these dose optimization techniques: automated exposure control; mA and/or kV adjustment per patient size (includes targeted exams where dose is matched to clinical indication); or iterative reconstruction. Findings: The ventricular system is normal without shift. No recent infarct or hemorrhage is seen. There are no abnormal intracerebral masses. The cerebellum and brainstem are not remarkable. Bony windows of the skull and skull base show no fractures or erosions. The mastoid air cells, internal auditory canals, sella turcica, intraorbital contents, and paranasal sinuses are unremarkable. CT/CT head wo con* [id number] Impression: Negative CT scan of the head
--- NOTE | 2024-09-14 11:58 | W.ED.WEAKNES ---
HPI - Weakness General: Chief complaint: Weakness Stated complaint: syncopal episode Time Seen by Provider: 09/14/24 11:49 Source: patient Mode of arrival: ambulatory Limitations: no limitations History of Present Illness: 69-year-old female with a history of lung cancer currently on chemo states she was shopping at [employer] today and had a syncopal event. Patient was found unresponsive when EMS got there her heart rate was in the 30s he states that she was awake when they moved her she went to [facility] with RVR and is since converted and heart rates been in the 70s she was originally hypotensive her blood pressure is now normal she does not remember passing out she denies any headache or chest pains. Associated symptoms: Reports syncope; Denies chest pain, chills, dysuria, fever(s), headache(s), nausea or vomiting Review of Systems Const: Denies: fever(s), chills, body aches or change in appetite ENMT: Denies: throat pain or dental pain Card: Reports: syncope; Denies: chest pain Resp: Denies: dyspnea GI: Denies: abdominal pain, nausea, vomiting or diarrhea : Denies: dysuria Musc: Denies: neck pain or back pain Skin/Breast: Denies: rash Neuro: Denies: headache(s) PFSH ED PFSH: Medical History Atherosclerotic heart disease Microcytic anemia Osteoarthritis Gout Fibromyalgia Allergic rhinitis Psoriasis Pulmonary nodule Chronic hypoxic respiratory failure Systolic heart failure Asthma COPD (chronic obstructive pulmonary disease) Depression Hyperlipidemia Left renal mass Hypothyroidism Hypertension Surgical History History of colonoscopy History of tubal ligation History of cardiac cath History of cholecystectomy Family History Father Multiple myeloma Myocardial infarction Mother Alzheimer's dementia Diabetes mellitus, type 2 Social History Smoking and tobacco/nicotine status: current every day tobacco/nicotine user Alcohol intake: never Substance/Drug Use: never Physical Exam Const: COMMON NORMALS: no acute distress, patient oriented x3 and healthy appearing HENMT: COMMON NORMALS: normocephalic and atraumatic HEAD & SCALP: normocephalic and atraumatic Eye: COMMON NORMALS: conjunctivae normal CONJUNCTIVA: Yes conjunctivae normal Neck/C-Spine: COMMON NORMALS: full ROM and supple Chest: COMMONS NORMALS: normal inspection of the chest Resp: COMMON NORMALS: normal respiratory effort, No retractions, No use of accessory muscles and clear to auscultation bilaterally AUSCULTATION: clear to auscultation bilaterally Cardio: COMMON NORMALS: regular rate, regular rhythm and No murmurs present (Cardio) RATE: regular rate RHYTHM: regular rhythm GI: COMMON NORMALS: Normal to inspection, nondistended, normoactive bowel sounds present, Soft to palpation, non-tender and no masses PALPATION: Yes Soft to palpation Extremity: COMMON NORMALS: normal to inspection and full ROM Neuro: COMMON NORMALS: patient oriented x3, moves all extremities and no focal motor deficits Psych: COMMON NORMALS: mental status grossly normal, Normal thought process present and cooperative THOUGHT PROCESS: Normal thought process present Skin: COMMON NORMALS: no rashes or lesions noted and no wounds GENERAL SKIN EXAM: no rashes or lesions noted Course Vital Signs: Vital signs: Vital Signs Temperature 97.6 F 09/14/24 11:49 Pulse Rate 72 09/14/24 13:57 Respiratory Rate 16 09/14/24 11:49 Blood Pressure 151/73 09/14/24 13:57 Pulse Oximetry 98 09/14/24 13:57 Oxygen Delivery Me thod Nasal Cannula 09/14/24 11:49 Oxygen Flow Rate 4 09/14/24 11:49 MDM - Weakness Medical Decision Making Patient presents here with syncopal event she has been well-appearing here vitals have been stable I did offer her admission she states she feels improved and wants to go home she is stable for discharge she is to follow-up with her oncologist she is return if worsening she understands agrees to plan. Medical Records I reviewed the patient's medical records. Lab Data I reviewed the patient's lab results. 09/14/24 13:16 09/14/24 12:02 Radiology Impressions Chest X-Ray 09/14/24 11:49 Impression: Hyperinflation. Head CT 09/14/24 11:53 Impression: Negative CT scan of the head Laboratory Results WBC 4.51 10^3/uL (3.29-11.43) 09/14/24 13:16 Corrected WBC Cancelled 09/14/24 12:02 RBC 2.80 10^6/uL (3.85-5.65) L 09/14/24 13:16 Hgb 7.90 g/dL (11.27-16.99) L 09/14/24 13:16 Hct 26.3 % (36-47) L 09/14/24 13:16 MCV 93.9 fl (85-98) 09/14/24 13:16 MCH 28.2 pg (27-33) 09/14/24 13:16 MCHC 30.0 g/dL (30-55) 09/14/24 13:16 RDW 17.5 % (12.1-15.1) H 09/14/24 13:16 Plt Count 93 10^3/cmm (157-399) L 09/14/24 13:16 MPV 9.8 fL (7.4-10.4) 09/14/24 13:16 Gran % Cancelled 09/14/24 12:02 Neut % (Auto) 69.3 % 09/14/24 13:16 Lymph % (Auto) 20.0 % 09/14/24 13:16 [place] % (Auto) 8.2 % 09/14/24 13:16 Eos % (Auto) 1.6 % 09/14/24 13:16 Baso % (Auto) 0.7 % 09/14/24 13:16 Neut # (Auto) 3.13 10^3/uL (1.8-7.7) 09/14/24 13:16 Lymph # (Auto) 0.9 10^3/uL (0.8-4.8) 09/14/24 13:16 [place] # (Auto) 0.4 10^3/uL (0.2-0.9) 09/14/24 13:16 Eos # (Auto) 0.1 10^3/uL (0.0-0.8) 09/14/24 13:16 Baso # (Auto) 0.0 10^3/uL (0.0-0.1) 09/14/24 13:16 Absolute Gran (auto) Cancelled 09/14/24 12:02 Nucleated RBC % (auto) 0 % 09/14/24 13:16 Nucleated RBCs # 0.0 /100WBC 09/14/24 13:16 Sodium 134 mmol/L (136-145) L 09/14/24 12:02 Potassium 3.3 mmol/L (3.5-5.1) L 09/14/24 12:02 Chloride 98 mmol/L (98-107) 09/14/24 12:02 Carbon Dioxide 25 mmol/L (22-29) 09/14/24 12:02 Anion Gap 14.3 (5-19) 09/14/24 12:02 BUN 9 mg/dL (8-23) 09/14/24 12:02 Creatinine 1.1 mg/dL (0.5-0.9) H 09/14/24 12:02 GFR Calculation 49.1 mL/min (90-130) L 09/14/24 12:02 Glucose 119 mg/dL (65-115) H 09/14/24 12:02 Calculated Osmolality 278 mOsm/kg (285-295) L 09/14/24 12:02 Calcium 8.0 mg/dL (8.5-10.5) L 09/14/24 12:02 Magnesium 1.6 mg/dL (1.7-2.3) L 09/14/24 12:02 Total Bilirubin 0.7 mg/dL (0.15-1.2) 09/14/24 12:02 AST 19 U/L (0-32) 09/14/24 12:02 ALT 8 U/L (0-33) 09/14/24 12:02 Alkaline Phosphatase 131 U/L (35-105) H 09/14/24 12:02 Total Protein 5.9 g/dL (6.6-8.7) L 09/14/24 12:02 Albumin 2.3 g/dL (3.5-5.2) L 09/14/24 12:02 Globulin 3.6 g/dL (1.3-4.6) 09/14/24 12:02 All radiology interpretation(s) finalized by discharge EKG Data EKG 1: I personally reviewed and interpreted this EKG as follows: EKG interpretation date: 09/14/24 EKG interpretation time: 11:55 Interpretation: nsr hr [address] elevation qrs 94 qtc 419 Discharge Plan Discharge Patient Disposition: Home Clinical Impression: Syncope Condition: Stable Prescriptions: No Action atorvastatin 40 mg tablet 40 mg PO QPM potassium chloride 10 mEq tablet extended release 10 meq PO DAILY albuterol sulfate 90 mcg/actuation HFA aerosol inhaler 2 puff INHALATION Q4H PRN (Reason: Shortness Of Breath Or Wheezing) levothyroxine 125 mcg tablet 125 mcg PO DAILY trazodone 50 mg tablet 50 mg PO QPM methotrexate sodium 2.5 mg tablet See Rx Instructions .ROUTE .COMPLEX Rx Instructions: Take 5 tablets by mouth once weekly. folic acid 1 mg tablet 1 mg PO DAILY midodrine 2.5 mg tablet 2.5 mg PO TID mirtazapine 15 mg tablet 15 mg PO DAILY Thermotabs 287-180-15 mg tablet 1 tab PO BID Cabometyx 20 mg tablet 20 mg PO DAILY Discharge Orders: Discharge ED (Routine); Ordered 09/14/24 Ordered By: Elle Starr Discharge Diet: Advance as tolerated Discharge Activity: Resume usual activity Patient Instructions: Syncope (ED) Print Language: Afghan Coding Level of Care Code ED Inspector Health Care Facilities for Chg Fwd Related Data Home Medications ?Medication ?Instructions ?Recorded ?Confirmed albuterol sulfate 90 mcg/actuation 2 puff inhalation Q4H PRN 04/16/23 09/14/24 aerosol inhaler Shortness Of Breath Or Wheezing atorvastatin 40 mg tablet 40 mg PO QPM 04/16/23 09/14/24 potassium chloride 10 mEq 10 meq PO DAILY 04/16/23 09/14/24 tablet,extended release cabozantinib 20 mg tablet 20 mg PO DAILY 09/14/24 09/14/24 (Cabometyx) folic acid 1 mg tablet 1 mg PO DAILY 09/14/24 09/14/24 levothyroxine 125 mcg tablet 125 mcg PO DAILY 09/14/24 09/14/24 methotrexate sodium 2.5 mg tablet See Rx Instructions .Route .COMPLEX 09/14/24 09/14/24 midodrine 2.5 mg tablet 2.5 mg PO TID 09/14/24 09/14/24 mirtazapine 15 mg tablet 15 mg PO DAILY 09/14/24 09/14/24 sodium chloride-potassium chloride 1 tab PO BID 09/14/24 09/14/24 287 mg-180 mg-15 mg tablet (Thermotabs) trazodone 50 mg tablet 50 mg PO QPM 09/14/24 09/14/24 Allergies Allergy/AdvReac Type Severity Reaction Status Date / Time codeine Allergy Unknown Verified 04/16/23 12:06 iodine Allergy ADR-Itching Verified 08/25/23 19:31
[2024-09-14 12:00] VITALS: PULSE 70; O2SAT 98
[2024-09-14] MEDS: sodium chloride 0.9% 1,000 ML 999 ML IV (12:48)
[2024-09-14 12:56] LABS: Magnesium 1.6 mg/dL (1.7-2.3)
[2024-09-14 12:57] LABS: Alanine Aminotransferase 8 U/L (0-33); Albumin Level 2.3 g/dL (3.5-5.2); Alkaline Phosphatase 131 U/L (35-105); Aspartate Amino Transferase 19 U/L (0-32); Blood Urea Nitrogen 9 mg/dL (8-23); Carbon Dioxide 25 mmol/L (22-29); Chloride 98 mmol/L (98-107); Creatinine Clr Calc Pharmacy 44.4498; Globulin 3.6 g/dL (1.3-4.6); Glomerular Filtration Rate 49.1 mL/min (90-130); Glucose 119 mg/dL (65-115); Osmolality Calculated 278 mOsm/kg (285-295); Sodium 134 mmol/L (136-145); Total Bilirubin 0.7 mg/dL (0.15-1.2); Total Protein 5.9 g/dL (6.6-8.7)
[2024-09-14 12:59] LABS: Anion Gap 14.3 (5-19); Potassium 3.3 mmol/L (3.5-5.1)
[2024-09-14] MEDS: magnesium sulfate premix 1 GM/100 ML PIGGYBACK IV (13:18)
[2024-09-14 13:25] LABS: Basophils % 0.7 %; Eosinophils # 0.1 10^3/uL (0.0-0.8); Eosinophils % 1.6 %; Hematocrit 26.3 % (36-47); Lymphocytes # 0.9 10^3/uL (0.8-4.8); Mean Corpuscular Hemoglobin 28.2 pg (27-33); Mean Corpuscular Volume 93.9 fl (85-98); Mean Platelet Volume 9.8 fL (7.4-10.4); Monocytes # 0.4 10^3/uL (0.2-0.9); Monocytes % 8.2 %; Neutrophils # 3.13 10^3/uL (1.8-7.7); Neutrophils % 69.3 %; Nucleated Red Blood Cells % 0 %; Platelet Count 93 10^3/cmm (157-399); Red Cell Distribution Width 17.5 % (12.1-15.1); White Blood Count 4.51 10^3/uL (3.29-11.43)
[2024-09-14 13:57] VITALS: BP 138/76; BP 143/73; BP 149/73; BP 151/73; PULSE 115; PULSE 72; PULSE 78; PULSE 80; O2SAT 98
--- NOTE | 2024-09-14 14:02 | PC.NURSE ---
pt ambulated without assistance, denies dizziness. states feels at baseline. Dr. Starr notified.
== END 2024-09-14 14:07 | disposition home or self-care (01) ==
PROVIDERS: Emergency Provider Emergency Medicine
DX: R55 Syncope and collapse (principal); Z72.0 Tobacco use; J44.9 Chronic obstructive pulmonary disease, unspecified; E78.5 Hyperlipidemia, unspecified; I11.0 Hypertensive heart disease with heart failure; I50.20 Unspecified systolic (congestive) heart failure; Z85.118 Personal history of other malignant neoplasm of bronchus and lung
CPT/HCPCS: 36415; 70450; 71045; 80053; 83735; 85025; 93005; 96365; 99285; J3475; J7030